=== PATIENT | male | born 1960 | race Caucasian/White ===

== ENCOUNTER → 2018-02-06 10:52 | Outpatient (CLI) | payer BC, SELFPAY ==
[2018-02-15 19:14] LABS: Ca oxalate dihydrate 10 % (.)
[2018-02-17 09:23] LABS: Specimen Type Comment: (.)
== END ==
PROVIDERS: Visit Provider Emergency Medicine
DX: N20.0 Calculus of kidney (principal)
CPT/HCPCS: 82370

== ENCOUNTER → 2018-08-22 13:34 | Outpatient (CLI) | payer BC, SELFPAY ==
--- NOTE | 2018-08-22 13:44 | XR_ITS ---
XR KUB HISTORY: ITS.REASON: Renal Calculus ORDERING PHYSICIAN: Jose Mancilla MD PATIENT AGE: 58 years COMPARISON: None FINDINGS: Pain calcification noted over the lower pole left kidney suggesting left nephrolithiasis. This area measures 3 x 1 mm. Bilateral pelvic vascular calcification. IMPRESSION: Left nephrolithiasis
== END ==
PROVIDERS: PCP Family Medicine; Visit Provider Urology
DX: N20.1 Calculus of ureter (principal)
CPT/HCPCS: 74018

== ENCOUNTER → 2019-02-15 13:46 | Outpatient (CLI) | payer BC, SELFPAY ==
--- NOTE | 2019-02-15 13:51 | XR_ITS ---
PROCEDURE: XR KUB CLINICAL INDICATION: renal calculus Right flank pain COMPARISON: ABDPELWO CT abdomen pelvis wo con from 02/01/2018 FINDINGS: There is a moderate amount of retained colonic feces in the ascending and transverse colon obscuring the renal outlines. No obvious renal or ureteral calculi evident. IMPRESSION: No obvious renal or ureteral calculi Dictated by: Mickey Thompson MD 02/15/2019 15:01 Electronically signed by Mickey Thompson MD in [facility] 02/15/2019 15:01
== END ==
PROVIDERS: PCP Family Medicine; Visit Provider Urology
DX: N20.1 Calculus of ureter (principal)
CPT/HCPCS: 74018

== ENCOUNTER → 2019-02-22 15:20 | Outpatient (CLI) | payer BC, SELFPAY ==
--- NOTE | 2019-02-22 15:22 | US_ITS ---
PROCEDURE: US KIDNEY CLINICAL INDICATION: R10.9 Unspecified abdominal pain Right-sided flank pain COMPARISON: No exams were available for comparison FINDINGS: The kidneys are normal size shape and position. No hydronephrosis, mass, perinephric fluid or cortical thinning. IMPRESSION: Negative bilateral renal ultrasound Dictated by: Mickey Thompson MD 02/22/2019 17:16 Electronically signed by Mickey Thompson MD in [facility] 02/22/2019 17:16
== END ==
PROVIDERS: PCP Family Medicine; Visit Provider Urology
DX: R10.9 Unspecified abdominal pain (principal)
CPT/HCPCS: 76770

== ENCOUNTER → 2019-02-27 14:57 | Outpatient (CLI) | payer BC, SELFPAY ==
--- NOTE | 2019-02-27 15:06 | CT_ITS ---
PROCEDURE: CT ABDOMEN PELVIS WO CON CLINICAL INDICATION: RIGHT FLANK PAIN COMPARISON: ABDPELWO CT abdomen pelvis wo con from 02/01/2018 TECHNIQUE: Axial images obtained with sagittal and coronal reformats. All CT scans at the facility use one or more dose reduction, viz: automated exposure control, ma/kV adjustment per patient size (including targeted exams where dose is matched to indication, i.e. head), or iterative reconstruction technique. FINDINGS: LOWER THORAX: No acute finding ABDOMEN & PELVIS: Fatty liver. The gallbladder, spleen, pancreas, and adrenal glands have an unremarkable appearance. There is some minimal haziness of the fat in the celiac axis region with some scattered small nodes in this area. This is nonspecific and probably not significantly changed. There is a 3 mm stone in the lower pole of the right kidney. On the left there are multiple punctate renal calculi measuring up to 4 mm in the upper pole and there is a curvilinear stone in the lower pole of the left kidney which measures 7 mm. No ureteral calculi. No hydronephrosis. There are small periaortic lymph nodes. There is minimal ectasia of the infrarenal abdominal aorta at 2.4 cm. Unremarkable appendix. No urinary bladder calculi. No acute bony findings. There are scattered diverticula of the colon but no evidence of diverticulitis. IMPRESSION: 1. Bilateral nephrolithiasis. No obstructing ureteral calculi evident. 2. Other nonacute findings as described above. Dictated by: Mickey Thompson MD 02/27/2019 19:12 Electronically signed by Mickey Thompson MD in [facility] 03/01/2019 06:35
== END ==
PROVIDERS: PCP Family Medicine; Visit Provider Urology
DX: R10.9 Unspecified abdominal pain (principal)
CPT/HCPCS: 74176

== ENCOUNTER → 2019-03-20 11:10 | Outpatient (CLI) | payer BC, SELFPAY ==
--- NOTE | 2019-03-20 11:15 | XR_ITS ---
PROCEDURE: XR THORACIC SPINE 2V CLINICAL INDICATION: THORACIC BACK PAIN Chronic mild wedge deformities T7 and T8. COMPARISON: No exams were available for comparison FINDINGS: There is multilevel degenerative disc disease from T1-T2 to the T10-11. Mild anterior wedging of T8 and T7 with loss of less than 1/4 of the vertebral body heights are noted without acute lucent fracture lines. Old wedging is suspected. There is no convincing evidence of acute fracture dislocation or destructive lesion. IMPRESSION: Multilevel degenerative disc disease. Chronic appearing mild wedge deformities T7 and T8. Dictated by: Aristeo Amador 03/20/2019 11:43 Electronically signed by Aristeo Amador in [facility] 03/20/2019 11:43
== END ==
PROVIDERS: PCP Family Medicine; Visit Provider Family Medicine
DX: M54.6 Pain in thoracic spine (principal)
CPT/HCPCS: 72070

== ENCOUNTER 2019-10-20 13:21 | Emergency (ER) | payer BC, SELFPAY ==
[2019-10-20 14:26] VITALS: BP 142/90; PULSE 81; RESP 20; TEMP 36.9; O2SAT 98; BMI 26.6
--- NOTE | 2019-10-20 14:43 | HMH.EDUTC ---
[place] Disposition Clinical Impression: URI (upper respiratory infection) Qualifiers: URI type: unspecified URI Qualified Code(s): J06.9 - Acute upper respiratory infection, unspecified Disposition: Home, Self-Care Condition on Discharge: Good Instructions: Sore Throat, DI for Strep Throat Additional Instructions: *Monitor Temp, Over the counter Motrin or Tylenol as directed/as needed Tylenol every 4 hours and Motrin every 6 hours (as long as your family doctor has told you that you can take it) for fever or pain. and straight to ER if unable to lower temp less than 101.0 after medication given *Warm salt water gargles may help to soothe the throat *Throat Lozenges *Warm fluids like tea with honey may help to soothe the throat *Sleep elevated *Humidifier/Vaporizer Take medication as prescribed Your throat swab was sent for culture. Those results are typically sent to your primary care. Be sure to follow up in 2-3 days with your family doctor/primary care physician if no improvement so they can review those result and treat if necessary. If you don?t have a primary care doctor, I recommend you get one but in the mean time, you will have to return to a walk in clinic Follow up IMMEDIATELY for new or worsening symptoms or no Noticeable improvement over the next 48-72 hours. 911 for difficulty breathing or swallowing *change toothbrush and toothpaste 24-48 hours after starting to take antibiotics so you do not reinfect yourself Monitor Temp. Tylenol and/or Ibuprofen as needed. ER if fever is no less than 101 despite alternating Tylenol and Ibuprofen * Encourage fluids, water, Gatorade, powerade, pedialyte if /toddler/or child *Cold fluids, popsicles and ice cream may feel good on his throat Prescriptions: Amoxicillin [Amoxicillin 500mg Cap] 500 mg PO BID 10 Days #20 cap Transmission Status: Received by [facility] #[id number] Referrals: Bina Garvey [Primary Care Provider] - As needed Time of Disposition: 14:51 Medical Decision Making - [place] Inquiry Pt receiving controlled substance: No Geovany was queried for this patient: No Vital Signs: 10/20/19 14:26 Temperature 98.4 F Temperature Source Oral Pulse Rate [Left Brachial] 81 Respiratory Rate 20 Blood Pressure [Left Arm] 142/90 H Blood Pressure Mean [Left Arm] 107 Blood Pressure Source [Left Arm] Automatic Cuff Blood Pressure Position [Left Arm] Sitting 02 Sat by Pulse Oximetry 98 Oxygen Delivery Method Room Air - Lab Data Lab results reviewed: Yes: I reviewed the patient's lab results. Orders (Tests/Meds): ED MEDICATIONS Discontinued Medications Generic Name Dose Route Start Last Admin Trade Name Freq PRN Reason Stop Dose Admin Methylprednisolone Sodium Succinate 125 mg 10/20/19 14:49 10/20/19 14:59 Solu-Medrol 125mg/2ml Vial IM 10/20/19 14:50 125 mg ONCE ONE Administration [place] HPI - General Stated complaint: sore throat, Time Seen by Provider: 10/20/19 14:43 Mode of Arrival: Ambulatory Source of Information: Patient Limitations: No Limitations Description of Symptoms (Recalled from Triage Doc. by RN): PATIENT C/O SORE THROAT X 3 DAYS. DENIES ANY OTHER SYMPTOMS HEENT Symptoms (Recalled from RN notes): Yes Resp Symptoms (Recalled from RN notes): No Skin Symptoms (Recalled from RN notes): No MS Symptoms (Recalled from RN notes): No Functional Status (Recalled from RN notes): WNL - History of Present Illness Provider Complaint: Patient states that he has been having sore throat for several days that has got worse today States that he feels like his throat is swollen and hurts when he swallows Denies any other symptoms - Related Data Previous Rx's Medication Instructions Recorded Ondansetron [Zofran 4mg ODT] 4 mg PO TIDP PRN #10 tab.rapdis 02/01/18 Oxycodone HCl/Acetaminophen 1 tab PO Q6HP PRN #10 tab 02/01/18 [Percocet 5/325mg tablet] Tamsulosin HCl [Flomax 0.4mg 0.4 mg PO HS #10 cap.er.24h
[2019-10-20 15:04] LABS: UTC Strep Screen (Rapid) Negative (Negative)
[2019-10-20 15:13] VITALS: BP 142/90; PULSE 81; RESP 20; TEMP 36.9; O2SAT 98
== END 2019-10-20 15:14 | disposition home or self-care (01) ==
PROVIDERS: Emergency Provider Nurse Practitioner; PCP Family Medicine
DX: J06.9 Acute upper respiratory infection, unspecified (principal)
CPT/HCPCS: 87880; 96372; 99202

== ENCOUNTER → 2020-01-12 09:49 | Outpatient (CLI) | payer BC, SELFPAY ==
[2020-01-12 10:44] LABS: Coronavirus 19 IgG Antibody Negative (Negative); Coronavirus 19 IgM Antibody Negative (Negative)
== END ==
PROVIDERS: Visit Provider Internal Medicine Gastroenterology
DX: Z01.89 Encounter for other specified special examinations (principal); Z12.11 Encounter for screening for malignant neoplasm of colon
CPT/HCPCS: 36415; 86328

== ENCOUNTER 2020-01-14 08:26 | Day surgery (SDC) | payer BC, SELFPAY ==
[2020-01-09 09:34] VITALS: BMI 27.1
[2020-01-14 08:45] VITALS: BP 122/71; PULSE 50; RESP 16; TEMP 36.6; O2SAT 98
[2020-01-14 09:34] VITALS: O2SAT 99
--- NOTE | 2020-01-14 09:34 | P.PN_ITS ---
[facility] Anesthesia Checklist - Structural Data Admitted From: Home Planned Operative Procedure/s: colonoscopy Consent for Planned Operative Procedure(s) Verified: Yes - Airway Assessment C-Spine Mobility Assessed: Yes TMJ Mobility Assessed: Yes Dentition: Good Dentition - Neurological Assessment Level of Consciousness: Awake, Alert, Appropriate - Anesthesia Plan Anesthesia Risk discussed: Yes Anesthesia Plan: Verified ASA Class: II Anesthesia Type: MAC [facility] History I have reviewed the patient's past medical history: Yes Medical History: Reports:: Hyperlipidemia Denies:: Cancer, Diabetes Mellitus Type 1, Diabetes Mellitus Type 2, Internal Pacemaker, MRSA, Seizures *Have you ever received a pneumonia vaccine?: No *Have you received a flu vaccine this season?: Yes Anesthesia experience/problems:: none Laterality Cases: Left: Arthroscopy Knee Other Surgeries: Yes: Colonoscopy. No: Pacemaker Amputation: No Fractures: No - *Social History Smoking Status: Current every day smoker Tobacco Type: cigarettes # Packs/Day (cigarettes): 1 Alcohol Intake: never Alcohol Intake Frequency:: holidays/special occasions only Substance Use Type: denies use *Occupational Status:: employed, retired Housing: house Household Members: spouse *Travel in the last 8 weeks: None Family Hx:: No significant family history
--- NOTE | 2020-01-14 09:56 | P.PCN_ITS ---
[facility] Procedure Note Procedure Note:: Colonoscopy Procedure Report: Colonoscopy with cold snare polypectomy Endoscopist: Eduard Hilton II, MD Referring physician: Bina Garvey MD Date of Procedure: January 14, 2020 Equipment: Olympus 180 variable stiffness pediatric colonoscope Sedation: MAC sedation Indication: Mr. Schofield is a 59-year-old gentleman who is here for follow-up screening/surveillance colonoscopy secondary to a personal history of colon polyps. The patient did have a colonoscopy in December 2009 and had 4 polyps (tubular adenomas x4) removed. His colonoscopy in February 2014 revealed 6 colon polyps (tubular adenomas x6) which were removed. His last colonoscopy in January 2017 revealed 4 new colon polyps (tubular adenomas x4) which were removed. The patient reports no abdominal pain, weight loss, change in his bowel habits or rectal bleeding. He reports no family history of colon cancer. Procedure: Prior to the procedure, a history and physical exam was performed, and patient's medications and allergies were reviewed. The risks, benefits and alternatives of the sedation and procedure were discussed with the patient. All questions were answered and informed consent was obtained. The patient was brought to the procedure room. Patient identification and proposed procedure were verified by the physician and the nurse. The patient was placed in a left lateral decubitus position and the scope was passed under direct vision. Throughout the procedure, the patient's blood pressure, pulse, and oxygen saturations were monitored continuously. The colonoscopy was accomplished without difficulty. The patient tolerated the procedure well. Findings: On digital rectal examination there was normal rectal tone. There were no external hemorrhoids. The prostate was 2+, smooth, soft, symmetric without nodules. The colonoscope was introduced through the anal canal to the rectum and advanced to the cecum. The ileocecal valve and appendiceal orifice were identified. The scope was advanced a short distance into the ileum which appeared grossly normal. The scope was then withdrawn into the colon. There were 3 diminutive colon polyps (cecum x1 (4 mm), descending x1 (4 mm) and sigmoid x1 (3 mm)) which were all removed via cold snare polypectomy. There were mildly scattered diverticuli throughout the descending and sigmoid colon (LEFT colon). The rectum itself was normal. Upon retroflexion within the rectum there were grade 1 internal hemorrhoids. The preparation was excellent throughout with Cornelia Preparation Score of 9. The cecal time was 12 minutes. Impression: 1. Diminutive colonic polyps x3 2. Mild left-sided diverticulosis 3. Grade 1 internal hemorrhoids Plan: I will follow up the polyp pathology and recommend repeat colonoscopy again in 5 years based upon the patient's personal history of adenomatous polyps and the present polyp histology. I would encourage fiber supplementation on a long-term daily maintenance basis.
[2020-01-14 10:00] VITALS: BP 95/62; PULSE 66; RESP 12; TEMP 36.6; O2SAT 97
[2020-01-14 10:10] VITALS: BP 103/67; PULSE 55; RESP 16; O2SAT 98
[2020-01-14 10:20] VITALS: BP 133/87; PULSE 56; RESP 16; O2SAT 100
[2020-01-14 10:30] VITALS: BP 123/81; PULSE 59; RESP 16; TEMP 36.6; O2SAT 100
== END 2020-01-14 10:55 | disposition home or self-care (01) ==
LOC: OUTP 08:32
PROVIDERS: PCP Family Medicine; Visit Provider Internal Medicine Gastroenterology
PROC: 0DJD8ZZ Inspection of Lower Intestinal Tract, Via Natural or Artificial Opening Endoscopic (ICD-10-PCS; CPT 45378; principal; 2020-01-14 09:30)
DX: Z12.11 Encounter for screening for malignant neoplasm of colon (principal); Z86.010 Personal history of colon polyps; K63.5 Polyp of colon; K57.30 Diverticulosis of large intestine without perforation or abscess without bleeding; K64.0 First degree hemorrhoids; E78.5 Hyperlipidemia, unspecified; Z87.39 Personal history of other diseases of the musculoskeletal system and connective tissue; Z79.899 Other long term (current) drug therapy
CPT/HCPCS: 45385

== ENCOUNTER 2022-09-24 14:39 | Emergency (ER) | payer BC, SELFPAY ==
[2022-09-24] VITALS (22 sets, daily range): BP systolic 115–168; BP diastolic 70–94; PULSE 62–81; RESP 15–21; TEMP 36.4–36.7; O2SAT 95–100; BMI 25.5
--- NOTE | 2022-09-24 14:42 | PC.NURSE ---
RN at the bedside
--- NOTE | 2022-09-24 14:44 | PC.NURSE ---
called ct for stat head ct
--- NOTE | 2022-09-24 14:44 | HMH.EDGENADL ---
Discharge Plan Disposition Patient Disposition: Xfer Other Prescriptions Prescriptions: No Action simvastatin 20 MG tablet 20 mg PO HS aspirin 81 mg Tablet,Chewable 81 mg PO DAILY Referrals Follow up/Referrals: Bina Garvey [Primary Care Provider] - See instructions Clinical Impressions Clinical Impression: Closed fracture of frontal sinus, Closed fracture of orbital wall, Forehead laceration Discharge ED Provider: Yunier Stanford General Adult HPI General Chief complaint: Head Injury Stated complaint: Fall 09/24 lac on forehead Time Seen by Provider: 09/24/22 14:44 History of Present Illness HPI narrative: Patient is a 62-year-old man presenting today with a head injury. 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 He has a significant headache and is having nausea and vomiting associate with this. Denies any loss of consciousness. He is not on any anticoagulation or antiplatelet other than daily 81 mg aspirin. He has no injuries elsewhere. Related Data Home Medications Medication Instructions Recorded Confirmed simvastatin 20 mg tablet 20 mg PO HS Cholesterol 01/09/20 09/24/22 aspirin 81 mg chewable tablet 81 mg PO DAILY Heart health 09/24/22 09/24/22 Allergies Allergy/AdvReac Type Severity Reaction Status Date / Time No Known Allergies Allergy Verified 01/14/20 08:44 [facility] Disclaimer: The information contained in this section may have been updated after the patient was seen, as this information can be updated by other users. Social History Smoking Status: Current every day smoker tobacco type: cigarettes packs per day: 1 second hand exposure: No alcohol intake: never substance use type: denies use current occupational status: employed and retired Travel in the last 8 weeks: None household members: spouse housing: house current occupational exposures/hazards: Yes caffeine: Yes ROS Obtained: Yes All systems reviewed & no additional complaints except as documented Physical Exam General General appearance: alert Head Head exam: other (There is obvious facial deformity over the frontal aspect of the left side of his face and forehea with significant depression of at least 1 cm, there is also a horizontally oriented laceration in the middle of his forehead) Neck Neck exam: Absent tenderness Respiratory Respiratory exam: Present normal lung sounds bilaterally; Absent respiratory distress or wheezes Cardiovascular Cardiovascular exam: Present regular rate; Absent tachycardia Abdominal Exam Abdominal exam: Present soft; Absent distention or tenderness Neurological Exam Neurological exam: Present alert and oriented X3 Medical Decision Making [place] Inquiry Pt receiving controlled substance: No Vital Signs: 09/24/22 14:40 09/24/22 14:43 09/24/22 15:15 Temperature 97.6 F Temperature Source Tympanic Pulse Rate 80 78 Pulse Rate [Left] 80 Respiratory Rate 21 18 Blood Pressure 150/85 H 150/93 H Blood Pressure [Right Arm] 150/81 H Blood Pressure Mean 92 112 Blood Pressure Mean [Right Arm] 104 Blood Pressure Source [Right Arm] Automatic Cuff Blood Pressure Position [Right Arm] Sitting 02 Sat by Pulse Oximetry 99 99 100 Oxygen Delivery Method Room Air Room Air 09/24/22 15:30 09/24/22 15:45 Temperature Temperature Source Pulse Rate 81 75 Pulse Rate [Left] Respiratory Rate Blood Pressure 154/83 H 145/86 H Blood Pressure [Right Arm] Blood Pressure Mean 106 105 Blood Pressure Mean [Right Arm] Blood Pressure Source [Right Arm] Blood Pressure Position [Right Arm] 02 Sat by Pulse Oximetry 98 98 Oxygen Delivery Method Orders (Tests/Meds): ED MEDICATIONS Generic Name Dose Route Start Last Adm
--- NOTE | 2022-09-24 14:45 | CT_ITS ---
FINAL REPORT CLINICAL HISTORY: fall, injury FINDINGS: Axial CT images of the cervical spine were obtained without contrast. Sagittal and coronal reformatted images were also obtained. This study was performed with techniques to keep radiation doses as low as reasonably achievable (ALARA). Individualized dose reduction techniques using automated exposure control or adjustment of mA and/or kV according to the patient's size were employed. There is no evidence of fracture or dislocation. The bony alignment is normal. There are mild degenerative changes with small osteophytes. No paraspinous soft tissue abnormality is seen. Limited images of the upper thorax are unremarkable. IMPRESSION: Mild degenerative changes without acute bony abnormality. Reviewed, Interpreted and Dictated by Gibran Stewart III, MD Transcribed by Jackie Bishop Authenticated and [facility]
--- NOTE | 2022-09-24 14:45 | CT_ITS ---
FINAL REPORT CLINICAL HISTORY: fall, head injury frontal FINDINGS: Axial images of the head were obtained without contrast. Coronal reformatted images were also obtained.This study was performed with techniques to keep radiation doses as low as reasonably achievable (ALARA). Individualized dose reduction techniques using automated exposure control or adjustment of mA and/or kV according to the patient's size were employed. There is no evidence of intracranial hemorrhage or mass. The ventricular size is within normal limits. There is no evidence of shift of the midline structures. No abnormal extra axial fluid collection is identified. There is a comminuted fracture involving the anterior wall of the left frontal sinus with posterior displacement of fracture fragments. There is a fracture of the anterior/superior orbit wall. Air is seen in the left orbit. There is partial opacification of the frontal sinuses and several ethmoid air cells. There is mucosal thickening of the right maxillary sinus. IMPRESSION: No acute intracranial abnormality. Fractures as above. Reviewed, Interpreted and Dictated by Gibran Stewart III, MD Transcribed by Jackie Bishop Authenticated and [facility]
--- NOTE | 2022-09-24 14:59 | PC.NURSE ---
rad notified to power share images and make a disc
--- NOTE | 2022-09-24 15:00 | PC.NURSE ---
Radiology informed to power-share images to [facility] and burn a disc
--- NOTE | 2022-09-24 15:02 | PC.NURSE ---
placed call to [facility] awaiting images and will return call
--- NOTE | 2022-09-24 15:02 | PC.NURSE ---
Rounded on patient; no needs at this time, call best within reach.
--- NOTE | 2022-09-24 15:52 | PC.NURSE ---
Dr Stanford speaking with [facility]
--- NOTE | 2022-09-24 16:00 | PC.NURSE ---
pt accepted at by Dr Berman
--- NOTE | 2022-09-24 16:17 | PC.NURSE ---
Awaiting EMS arrival for transport
--- NOTE | 2022-09-24 16:48 | PC.NURSE ---
Rounded on patient; pt resting on ED stretcher with son in law at BS. Call light within reach. Awaiting on EMS at this time
--- NOTE | 2022-09-24 17:37 | XR_ITS ---
PROCEDURE INFORMATION: Exam: XR Left Foot Exam date and time: 09/24/2022 5:34 PM Age: 62 years old Clinical indication: Pain; Foot; Left; Additional info: Pain/injury TECHNIQUE: Imaging protocol: Radiologic exam of the left foot. Views: 3 or more views. COMPARISON: No relevant prior studies available. FINDINGS: Bones/joints: Acute transverse fracture distal aspect of the 1st and 2nd proximal phalanx. Soft tissues: Associated soft tissue swelling. IMPRESSION: 1. Acute transverse fracture distal aspect of the 1st and 2nd proximal phalanx. 2. Associated soft tissue swelling.
--- NOTE | 2022-09-24 17:38 | PC.NURSE ---
Radiology at for a left foot/ankle xray
--- NOTE | 2022-09-24 17:49 | PC.NURSE ---
hard sole shoe applied to L foot
--- NOTE | 2022-09-24 18:26 | PC.NURSE ---
placed call for transport from [facility], they are to call back
--- NOTE | 2022-09-24 19:01 | PC.NURSE ---
[facility] updated on patient's status with transport
--- NOTE | 2022-09-24 20:21 | PC.NURSE ---
attempted to fly patient via [facility], spoke with [facility] and [place] [facility] is available per jani. patient worried about cost and declines to fly
--- NOTE | 2022-09-24 20:23 | PC.NURSE ---
Called [facility] for possible transportation. Spoke with Brianda she advised they are unable to at this time due to staffing.
--- NOTE | 2022-09-24 20:26 | PC.NURSE ---
Spoke with Ayse from [facility]. advised she would try to find someone available so she could send a crew
--- NOTE | 2022-09-24 20:31 | PC.NURSE ---
[facility] able to send crew at this time. Pt/family updated.
--- NOTE | 2022-09-24 21:21 | PC.NURSE ---
[facility] arrived to transport pt to [facility]
== END 2022-09-24 21:34 | disposition other institution (70) ==
PROVIDERS: Emergency Provider Student in an Organized Health Care Education/Training Program; PCP Family Medicine
DX: S02.40DA Maxillary fracture, left side, initial encounter for closed fracture (principal); S02.85XA Fracture of orbit, unspecified, initial encounter for closed fracture; S01.81XA Laceration without foreign body of other part of head, initial encounter; R11.2 Nausea with vomiting, unspecified; M79.672 Pain in left foot; F17.210 Nicotine dependence, cigarettes, uncomplicated; W01.198A Fall on same level from slipping, tripping and stumbling with subsequent striking against other object, initial encounter; Z79.82 Long term (current) use of aspirin; Z23 Encounter for immunization
CPT/HCPCS: 70450; 72125; 73630; 90471; 90715; 96365; 96372; 96375; 99285; J2405

== ENCOUNTER → 2022-10-11 13:54 | Outpatient (CLI) | payer BC, SELFPAY ==
--- NOTE | 2022-10-11 13:57 | XR_ITS ---
FINAL REPORT CLINICAL HISTORY: Foot Pain, post great toe fx about two weeks ago. Weightbearing views. COMPARISON: 09/24/2022 FINDINGS: LEFT FOOT: Three views of the left foot were obtained. There are fractures of the distal portions of the proximal phalanges of the 1st and 2nd toes, seen on the prior plain films of September 24. There is 4 mm of medial displacement of the distal fragment of the 1st toe proximal phalanx, which was also present on the prior films of September 24. In the interval since the prior exam some callus formation has occurred. Mild degenerative change of the 1st metatarsophalangeal joint is present. There is no soft tissue abnormality. IMPRESSION: Fractures of the distal portions of the proximal phalanges of the 1st and 2nd toes, seen on prior films of September 24. The displacement of the distal fragment of the 1st toe fracture remains present. Some callus formation is now seen. Reviewed, Interpreted and Dictated by Gibran Stewart III, MD Transcribed by Brandi Barcenas Authenticated and [facility]
== END ==
PROVIDERS: PCP Family Medicine; Visit Provider Podiatrist
DX: S92.402A Displaced unspecified fracture of left great toe, initial encounter for closed fracture (principal); M79.672 Pain in left foot
CPT/HCPCS: 73630

== ENCOUNTER → 2022-11-01 08:31 | Outpatient (CLI) | payer BC, SELFPAY ==
--- NOTE | 2022-11-01 08:38 | XR_ITS ---
FINAL REPORT CLINICAL HISTORY: foot pain COMPARISON: 10/11/2022 FINDINGS: Left foot Three views were obtained. There are transverse fractures of the 1st and 2nd proximal phalanges. There is moderate displacement of the 1st proximal phalanx and mild displacement of the 2nd proximal phalanx. Findings are stable since the prior. There is minimal callus formation, slightly increased. No new bony abnormality is identified. IMPRESSION: Minimal interval healing of the 1st and 2nd proximal phalanges without further displacement. Reviewed, Interpreted and Dictated by Mike Wilson MD Transcribed by Jackie Bishop Authenticated and [facility]
== END ==
PROVIDERS: PCP Family Medicine; Visit Provider Podiatrist
DX: S92.412D Displaced fracture of proximal phalanx of left great toe, subsequent encounter for fracture with routine healing (principal); S92.502D Displaced unspecified fracture of left lesser toe(s), subsequent encounter for fracture with routine healing
CPT/HCPCS: 73630

== ENCOUNTER 2024-08-02 07:16 | Outpatient (CLI) | payer MEDICARE, SELFPAY ==
--- NOTE | 2024-08-02 | CA_ITS ---
APPROVED REPORT Exam: Exercise Treadmill Technologist: Sofy Delong Ht: 6 ft 4 in Wt: 245 lbs BSA: 2.41 m2 HR: 63 bpm BP: 106/75 mmHg Rhythm: NSR Medical History Medical History: Hyperlipidemia, Smoking Medications: Aspirin, Atorvastatin, Fenofibrate, Magnsiun oxide Allergies: No known drug allergies Cardiac Risk Factors: Hyperlipidemia, Smoking Stress Test Details Test: Exercise stress testing was performed using a modified Devon protocol. HR Resting HR: 63 bpm Max Heart Rate (APMHR): 155 bpm Max HR Achieved: 136 bpm Target HR (85% APMHR): 132 bpm % of APMHR: 88 Recovery HR: 87 bpm HR response to stress: Normal HR response to stress BP Resting BP: 106.0/75.0 mmHg Max BP: 256.0/102.0 mmHg Recovery BP: 177.0/90.0 mmHg BP response to stress: Abnormal hypertensive response to stress. ECG Resting ECG: NSR Stress EC mm horizontal ST depression Arrhythmia: NSVT, PVCs Clinical Exercise duration: 17.47 min Exercise capacity: 7.4 METs Stress ECG Conclusion Max HR: 136 Max BP: 256/102 Mets: 7.4 Test stopped due to: soa, arrythmias Pt walked 8 1/2 minutes No chest pain Pt had shortness of air Ectopy: NSVT ST changes: [address] depression CONCLUSION: Average exercise capacity. ECG changes suggestive of ischemia at peak stress, including [address] depression and NSVT Hypertensive BP response to exercise. BP control is recommended. Myoview images are reported separately. Electronically signed by : Krysta Epperson MD 08/02/2024 12:59:31
--- OUTSIDE RECORDS SUMMARY | 2024-08-02 07:18 | XMS_ITS | Data Portability ---
Author Organization [facility] Address [address] [place] [address] Care Team Providers Care Clinical Unit Coordinator Name Role Phone MORGAN COOK Primary Care Provider Assessment Encounter Date Assessment Date Assessment LastModified by Organization Details LastModified Time 10/13/2021 10/13/2021 KUB reviewed with patient. We discussed kidney stone prevention. We discussed options for elective stone treatment with ESWL versus ureteroscopy. Continue to monitor by KUB. [email or web address] Not available 10/25/2021 14:27:05 04/16/2022 04/16/2022 We discussed kidney stone prevention. Follow up 6 months with KUB. Sildenafil as needed for erectile dysfunction. He reports PSA with PCP. [email or web address] Not available 04/19/2022 12:40:49 10/15/2022 10/15/2022 Sildenafil as needed for erectile dysfunction. He reports PSA with PCP. KUB without obvious stone burden. We discussed kidney stone prevention. [email or web address] Not available 10/15/2022 17:01:50 04/15/2023 04/15/2023 Sildenafil as needed for erectile dysfunction. He reports PSA with PCP. We discussed kidney stone prevention. [email or web address] Not available 04/15/2023 14:00:11 Plan of Treatment Reminders Order Date Submit Date Provider Last Modified By Organization Details Last Modified Time Details Appointments None recorded. Lab urinalysis panel, auto 2023 024 [email or web address] 14 [facility], [address], [place], [address], 4 14:00:14 urinalysis panel, auto 2022 023 [email or web address] 14 [facility], [address], [place], [address], 3 17:01:51 urinalysis panel, auto 2022 023 [email or web address] 14 [facility], [address], [address], [place], [address], 3 12:40:50 urinalysis panel, auto 2021 022 [email or web address] 14 [facility], [address], [address], [place], [address], 2 14:27:06 Referral None recorded. Procedures None recorded. Surgeries None recorded. Imaging XR, abdomen, 1 view 2023 024 [facility]iology [facility], [address] [facility] [address] [facility], [place], [address], 4 11:14:53 Medication Orders None recorded. Patient TargetsNo targets recorded. Patient InstructionsNo instructions recorded. Reason for Referral None Reported. Results Created Date Observation Date Name Description Value Unit Range Abnormal Flag Note LastModifiedBy Organization Detail LastModifiedTime 10/14/19 22 10/13/2021 urina lysis panel , auto Unknown Analyte Clean Catch Not Available [facility] [address], [place], [address], 10/13/2021 11:27:09 10/14/19 22 10/13/2021 urina lysis panel , auto Unknown Analyte Yellow Not Available [facility] [address], [place], [address], 10/13/2021 11:27:09 10/14/19 22 10/13/2021 urina lysis panel , auto Unknown Analyte Clear Not Available [facility] [address], [place], [address], 10/13/2021 11:27:09 10/14/19 22 10/13/2021 urina lysis panel , auto Unknown Analyte 1.020 Not Available [facility] [address], [place], [address], 10/13/2021 11:27:09 10/14/19 22 10/13/2021 urina lysis panel , auto Unknown Analyte 1.003- 1.035 Not Available [facility] [address], [place], [address], 10/13/2021 11:27:09 10/14/19 22 10/13/2021 urina lysis panel , auto Unknown Analyte 5.0 Not Available [facility] [address], [place], [address], 10/13/2021 11:27:09 10/14/19 22 10/13/2021 urina lysis panel , auto Unknown Analyte 5.0-8. 0 Not Available [facility] [address], [place], [address], 10/13/2021 11:27:09 10/14/19 22 10/13/2021 urina lysis panel , auto Unknown Analyte Negati ve Not Available [facility] [address], [place], [address], 10/13/2021 11:27:09 10/14/19 22 10/13/2021 urina lysis panel , auto Unknown Analyte Negati ve Not Available [facility] [address], [place], [address], 10/13/2021 11:27:09 10/14/19 22 10/13/2021 urina lysis panel , auto Unknown Analyte Negati ve Not Available [facility] [address], [place], [address], 10/13/2021 11:27:09 10/14/19 22 10/13/2021 urina lysis panel , auto Unknown Analyte Negati ve Not Available [facility] [address], [place], [address], 10/13/2021 11:27:09 10/14/19 22 10/13/2021 urina lysis panel , auto Unknown Analyte Negati ve Not Available [facility] [address], [place], [address], 10/13/2021 11:27:09 10/14/19 22 10/13/2021 urina lysis panel , auto Unknown Analyte Negati ve Not Available [facility] [address], [place], [address], 10/13/2021 11:27:09 10/14/19 22 10/13/2021 urina lysis panel , auto Unknown Analyte Normal Not Available [facility] [address], [place], [address], 10/13/2021 11:27:09 10/14/19 22 10/13/2021 urina lysis panel , auto Unknown Analyte Normal Not Available [facility] [address], [place], [address], 10/13/2021 11:27:09 10/14/19 22 10/13/2021 urina lysis panel , auto Unknown Analyte Negati ve Not Available [facility] [address], [place], [address], 10/13/2021 11:27:09 10/14/19 22 10/13/2021 urina lysis panel , auto Unknown Analyte Negati ve Not Available [facility] [address], [place], [address], 10/13/2021 11:27:09 10/14/19 22 10/13/2021 urina lysis panel , auto Unknown Analyte Normal Not Available [facility] [address], [place], [address], 10/13/2021 11:27:09 10/14/19 22 10/13/2021 urina lysis panel , auto Unknown Analyte Normal 1 mg/dl Not Available [facility] [address], [place], [address], 10/13/2021 11:27:09 10/14/19 22 10/13/2021 urina lysis panel , auto Unknown Analyte Negati ve Not Available [facility] [address], [place], [address], 10/13/2021 11:27:09 10/14/19 22 10/13/2021 urina lysis panel , auto Unknown Analyte Negati ve Not Available [facility], [facility] Urology [facility] [address], [place], [address], 10/13/2021 11:27:09 10/14/19 22 10/13/2021 urina lysis panel , auto Unknown Analyte Negati ve Not Available [facility] [address], [place], [address], 10/13/2021 11:27:09 10/14/19 22 10/13/2021 urina lysis panel , auto Unknown Analyte Negati ve Not Available [facility] [address], [place], [address], 10/13/2021 11:27:09 04/16/19 23 04/16/2022 urina lysis panel , auto Unknown Analyte Clean Catch Not Available [facility] [address], [place], [address], 04/16/2022 09:14:11 04/16/1904/16/2022 urina lysis panel , auto Unknown Analyte Yellow Not Available [facility] [address], [place], [address], 04/16/2022 09:14:11 04/16/1904/16/2022 urina lysis panel , auto Unknown Analyte Clear Not Available [facility] [address], [place], [address], 04/16/2022 09:14:11 04/16/19 23 04/16/2022 urina lysis panel , auto Unknown Analyte 1.020 Not Available [facility] [address], [place], [address], 04/16/2022 09:14:11 04/16/1904/16/2022 urina lysis panel , auto Unknown Analyte 1.003- 1.035 Not Available [facility] [address], [place], [address], 04/16/2022 09:14:11 04/16/19 23 04/16/2022 urina lysis panel , auto Unknown Analyte 5.0 Not Available [facility] [address], [place], [address], 04/16/2022 09:14:11 04/16/1904/16/2022 urina lysis panel , auto Unknown Analyte 5.0-8. 0 Not Available [facility] [address], [place], [address], 04/16/2022 09:14:11 04/16/1904/16/2022 urina lysis panel , auto Unknown Analyte 25 Shola/ul Trace Not Available [facility] [address], [place], [address], 04/16/2022 09:14:11 04/16/1904/16/2022 urina lysis panel , auto Unknown Analyte Negati ve Not Available [facility] [address], [place], [address], 04/16/2022 09:14:11 04/16/19 23 04/16/2022 urina lysis panel , auto Unknown Analyte Negati ve Not Available [facility] [address], [place], [address], 04/16/2022 09:14:11 04/16/1904/16/2022 urina lysis panel , auto Unknown Analyte Negati ve Not Available [facility] [address], [place], [address], 04/16/2022 09:14:11 04/16/1904/16/2022 urina lysis panel , auto Unknown Analyte Negati ve Not Available [facility] [address], [place], [address], 04/16/2022 09:14:11 04/16/1904/16/2022 urina lysis panel , auto Unknown Analyte Negati ve Not Available [facility] [address], [place], [address], 04/16/2022 09:14:11 04/16/1904/16/2022 urina lysis panel , auto Unknown Analyte Normal Not Available [facility] [address], [place], [address], 04/16/2022 09:14:11 04/16/1904/16/2022 urina lysis panel , auto Unknown Analyte Normal Not Available [facility] [address], [place], [address], 04/16/2022 09:14:11 04/16/1904/16/2022 urina lysis panel , auto Unknown Analyte Negati ve Not Available [facility] [address], [place], [address], 04/16/2022 09:14:04/16/1904/16/2022 urina lysis panel , auto Unknown Analyte Negati ve Not Available [facility] [address], [place], [address], 04/16/2022 09:14:04/16/1904/16/2022 urina lysis panel , auto Unknown Analyte 1 mg/dl Not Available [facility] [address], [place], [address], 04/16/2022 09:14:04/16/1904/16/2022 urina lysis panel , auto Unknown Analyte Normal 1 mg/dl Not Available [facility] [address], [place], [address], 04/16/2022 09:14:04/16/1904/16/2022 urina lysis panel , auto Unknown Analyte Negati ve Not Available [facility] [address], [place], [address], 04/16/2022 09:14:04/16/1904/16/2022 urina lysis panel , auto Unknown Analyte Negati ve Not Available [facility] [address], [place], [address], 04/16/2022 09:14:11 04/16/19 23 04/16/2022 urina lysis panel , auto Unknown Analyte Negati ve Not Available [facility] [address], [place], [address], 04/16/2022 09:14:11 04/16/19 23 04/16/2022 urina lysis panel , auto Unknown Analyte Negati ve Not Available [facility] [address], [place], [address], 04/16/2022 09:14:11 10/16/1910/15/2022 urina lysis panel , auto Unknown Analyte Clean Catch Not Available [facility] [address], [place], [address], 10/15/2022 08:51:32 10/16/19 23 10/15/2022 urina lysis panel , auto Unknown Analyte Yellow Not Available [facility] [address], [place], [address], 10/15/2022 08:51:32 10/16/19 23 10/15/2022 urina lysis panel , auto Unknown Analyte Clear Not Available [facility] [address], [place], [address], 10/15/2022 08:51:32 10/16/1910/15/2022 urina lysis panel , auto Unknown Analyte 1.025 Not Available [facility] [address], [place], [address], 10/15/2022 08:51:32 10/16/19 23 10/15/2022 urina lysis panel , auto Unknown Analyte 5.0 Not Available [facility] [address], [place], [address], 10/15/2022 08:51:32 10/16/19 23 10/15/2022 urina lysis panel , auto Unknown Analyte Negati ve Not Available [facility] [address], [place], [address], 10/15/2022 08:51:32 10/16/1910/15/2022 urina lysis panel , auto Unknown Analyte Negati ve Not Available [facility] [address], [place], [address], 10/15/2022 08:51:32 10/16/19 23 10/15/2022 urina lysis panel , auto Unknown Analyte Negati ve Not Available [facility] [address], [place], [address], 10/15/2022 08:51:32 10/16/19 23 10/15/2022 urina lysis panel , auto Unknown Analyte Normal Not Available [facility] [address], [place], [address], 10/15/2022 08:51:32 10/16/19 23 10/15/2022 urina lysis panel , auto Unknown Analyte Negati ve Not Available [facility] [address], [place], [address], 10/15/2022 08:51:32 10/16/19 23 10/15/2022 urina lysis panel , auto Unknown Analyte Normal Not Available [facility] [address], [place], [address], 10/15/2022 08:51:32 10/16/19 23 10/15/2022 urina lysis panel , auto Unknown Analyte Negati ve Not Available [facility] [address], [place], [address], 10/15/2022 08:51:32 10/16/19 23 10/15/2022 urina lysis panel , auto Unknown Analyte Negati ve Not Available [facility] [address], [place], [address], 10/15/2022 08:51:32 04/15/19 24 04/15/2023 urina lysis panel , auto Unknown Analyte Clean Catch Not Available [facility] [address], [place], [address], 04/15/2023 10:21:21 04/15/19 24 04/15/2023 urina lysis panel , auto Unknown Analyte Yellow Not Available [facility] [address], [place], [address], 04/15/2023 10:21:21 04/15/19 24 04/15/2023 urina lysis panel , auto Unknown Analyte Clear Not Available [facility] [address], [place], [address], 04/15/2023 10:21:21 04/15/19 24 04/15/2023 urina lysis panel , auto Unknown Analyte 1.020 Not Available [facility] [address], [place], [address], 04/15/2023 10:21:21 04/15/19 24 04/15/2023 urina lysis panel , auto Unknown Analyte 1.003- 1.035 Not Available [facility] [address], [place], [address], 04/15/2023 10:21:21 04/15/19 24 04/15/2023 urina lysis panel , auto Unknown Analyte 5.0 Not Available [facility] [address], [place], [address], 04/15/2023 10:21:21 04/15/19 24 04/15/2023 urina lysis panel , auto Unknown Analyte 5.0-8. 0 Not Available [facility] [address], [place], [address], 04/15/2023 10:21:21 04/15/19 24 04/15/2023 urina lysis panel , auto Unknown Analyte Negati ve Not Available [facility] [address], [place], [address], 04/15/2023 10:21:21 04/15/19 24 04/15/2023 urina lysis panel , auto Unknown Analyte Negati ve Not Available [facility] [address], [place], [address], 04/15/2023 10:21:21 04/15/19 24 04/15/2023 urina lysis panel , auto Unknown Analyte Negati ve Not Available [facility] [address], [place], [address], 04/15/2023 10:21:21 04/15/19 24 04/15/2023 urina lysis panel , auto Unknown Analyte Negati ve Not Available [facility] [address], [place], [address], 04/15/2023 10:21:21 04/15/19 24 04/15/2023 urina lysis panel , auto Unknown Analyte Negati ve Not Available [facility] [address], [place], [address], 04/15/2023 10:21:21 04/15/19 24 04/15/2023 urina lysis panel , auto Unknown Analyte Negati ve Not Available [facility] [address], [place], [address], 04/15/2023 10:21:21 04/15/19 24 04/15/2023 urina lysis panel , auto Unknown Analyte Normal Not Available [facility] [address], [place], [address], 04/15/2023 10:21:21 04/15/19 24 04/15/2023 urina lysis panel , auto Unknown Analyte Normal Not Available [facility] [address], [place], [address], 04/15/2023 10:21:21 04/15/19 24 04/15/2023 urina lysis panel , auto Unknown Analyte Negati ve Not Available [facility] [address], [place], [address], 04/15/2023 10:21:21 04/15/19 24 04/15/2023 urina lysis panel , auto Unknown Analyte Negati ve Not Available [facility] [address], [place], [address], 04/15/2023 10:21:21 04/15/19 24 04/15/2023 urina lysis panel , auto Unknown Analyte 1 mg/dl Not Available [facility], [facility] Urology [facility] [address], [place], [address], 04/15/2023 10:21:21 04/15/19 24 04/15/2023 urina lysis panel , auto Unknown Analyte Normal 1 mg/dl Not Available [facility] [address], [place], [address], 04/15/2023 10:21:21 04/15/19 24 04/15/2023 urina lysis panel , auto Unknown Analyte Negati ve Not Available [facility] [address], [place], [address], 04/15/2023 10:21:21 04/15/19 24 04/15/2023 urina lysis panel , auto Unknown Analyte Negati ve Not Available [facility], [facility] Urology [facility] [address], [place], [address], 04/15/2023 10:21:21 04/15/19 24 04/15/2023 urina lysis panel , auto Unknown Analyte Negati ve Not Available [facility] [address], [place], [address], 04/15/2023 10:21:21 04/15/19 24 04/15/2023 urina lysis panel , auto Unknown Analyte Negati ve Not Available [facility] [address], [place], [address], 04/15/2023 10:21:21 10/16/19 23 10/15/2022 XR, abdom en, 1 view [facility] [address] [place] [address] [place] [address] Patiimmanuel t Name: HILARIO Jacobsen : 1959 Nazario batista Orderi ng Provid er: CARROLL JOHNSO N EXAM DATE: 2022 EXAM: XR ABDOME N [facility] INFORM ATION: Histor y of urinar y tract stones . IMAGES PROVID ED: [facility] radiog raphic images of the abdome n. COMPAR SILVIA: None. FINDIN GS AND IMPRES JOHNNY: No stones or calcif icatio ns are seen in the expect ed locati on of the kidney s, ureter s or urinar y bladde r. No other signif icant abnorm ality. Interp reted By: Willy Mensah MD Electr onical ly Signed By: Willy Mensah MD on 10/16/19 10:56 AM [facility] [address] [place], [address], 10/16/2022 10:16:48 04/15/19 24 04/15/2023 XR, abdom en, 1 view [facility] [place] [facility] [address] [place] [address] [place] [address] Patiimmanuel t Name: HILARIO Jacobsen : 1959 Nazario batista Orderi ng Provid er: CARROLL SUEO N EXAM DATE: 2023 EXAM: XR ABDOME N [facility] INFORM ATION: Abdomi nal pain. Kidney stones IMAGES PROVID ED: KUB AP radiog raphic images of the abdome n. COMPAR SILVIA: None. FINDIN GS: No abnorm al intest inal gas patter n. Tiny subtle linear stone sugges tomas in the lower right renal bed. Unchan ged. No radiog raphic eviden ce of free intrap eriton eal air. IMPRES JOHNNY: Subtle tiny stone in the lower right renal bed Interp reted By: Grupo Paez MD Electr onical ly Signed By: Grupo Paez MD on 04/15/19 11:[address] Radiology [facility] [address] [place], [address], 04/15/2023 12:11:30 Result Notes None recorded. Problems No Known Problems Procedures Surgical History None recorded. Imaging Results Imaging Date Name Status LastModified by Organiz ation Details LastModified Time 10/15/2022 XR, abdomen, 1 view completed [facility] [address] [place], [address], 10/16/2022 10:16:48 04/15/2023 XR, abdomen, 1 view completed [address] Radiology [facility] [address] [place], [address], 04/15/2023 12:11:30 Procedure Notes None recorded. Medical Equipment None Reported. Allergies No known drug allergies Medications Name Sig Start Date Stop Date Status Note LastModified by Organization Details LastModified Time simvastatin 20 mg tablet Take 1 tablet every day by oral route. active Not Available Not Available No t Available fenofibrate 160 mg tablet Take 1 tablet every day by oral route. active Not Available Not Available No t Available Vitals Date Recorded Body height Body mass index (BMI) Body weight Provider Name and Address Organization Details Last Updated DateTime 10/13/2021 193.04 cm 26.2 kg/m2 76461.36 g Nano Conn [facility] 10/13/2021 11:31:20 Date Recorded Body height Body mass index (BMI) Body weight Provider Name and Address Organization Details Last Updated DateTime 10/15/2022 193.04 cm 26.4 kg/m2 87978.54 g Raquel Baron [facility] 10/15/2022 08:51:13 Date Recorded Body height Body mass index (BMI) Body weight Provider Name and Address Organization Details Last Updated DateTime 04/15/2023 193.04 cm 27.4 kg/m2 883773.28 g Tonya Linares [facility] 04/15/2023 10:23:41 Social History Question Answer Notes LastModified by Organizat ion Details LastModified Time Tobacco Smoking Status Current Every Day [facility]/13/2021 11:26:14 What Is Your Level Of Alcohol Consumption? Moderate [email or web address] Information not available 10/13/2021 Sex: Male Functional Status None recorded. Mental Status None recorded. Family History Relationship Description Onset Age of this Age Resolved Age Notes LastModified by Organization Details LastModified Time Father No current problems or disability [email or web address] Not available 10/13 11:26:01 Mother No current problems or disability [email or web address] Not available 10/13 11:26:01 Medical History Condition Response Kidney Stones Y Arthritis Y High Cholesterol Y Liver Disease Y Allergies/Hayfever Y Sleep Apnea Y Past Encounters Encounter ID Performer Location Encounter Start Date Encounter Closed Date Diagnosis/Indication Diagnosis SNOMED-CT Code Diagnosis ICD10 Code Diagnosis Note [id number] [place] [address] 07/15/2016 06:51:44 07/15/2016 06:51:44 [id number] MD SHREYA [facility]I [facility] [address] [place] [address] 10/13/2021 10:47:40 10/13/2021 12:09:21 Kidney stone 54943258 N20.0 Renal colic 3295133 N23 [id number] MD SHREYA [facility] [address] [place] [address] 04/16/2022 09:00:07 04/16/2022 09:44:01 Kidney stone 07102558 N20.0 Renal colic 7697630 N23 Primary er ectile dysfunction 622561945 N52.9 [id number] [facility] [address] [place] [address] 10/15/2022 08:01:41 10/15/2022 10:11:36 Kidney stone 81921458 N20.0 Renal colic 3838754 N23 Primary er ectile dysfunction 313713128 N52.9 [id number] CARROLL JONES MD [facility] [address] [place] [address] 04/15/2023 10:07:41 04/15/2023 10:34:59 Kidney stone 99375716 N20.0 Primary er ectile dysfunction 808861624 N52.9 Benign pro static hyperplasia with outflow obstruction 296685659 N40.1 Health Concerns Section Related Observation LastModified by Organization Detai ls LastModified Time None Recorded Concern Status LastModified by Organization Details LastModified Time None Recorded Advance Directives Directive None Recorded Payers Encounter Date Sequence Insurance Name Policy Number Policy Keyes Covered Member ID Keyes Member ID Guarantor Name 10/13/2021 1 [place] [id number] 2 Hilario Schofield [id number] Hilario Schofield 04/16/2022 1 [place] [id number] 2 Hilario Schofield [id number] Hilario Priscilla BasilioSchofield 10/15/2022 1 [place] [id number] 2 Hilario Schofield [id number] Hilario Priscilla Schofield 04/15/2023 1 [place] [id number] 2 Hilario Schofield [id number] Hilario Schofield Notes Date Note Type Note Provider Name and Address Organization Details Recorded Time 10/13/2021 text/html 61-year-old male in the office for my initial evaluation for discussion of urolithiasis. CT from 10/08/2021 showed bilateral nonobstructing renal stones up to 4 mm. He passed a stone 2 to 3 weeks ago. He voids every 2 hours with nocturia once nightly. No gross hematuria or dysuria. CARROLL JONES MD [address] [place] [address], [phone], [facility] 10/25/2021 14:27:47 04/16/2022 text/html 61-year-old male in the office for follow up evaluation of urolithiasis. CT from 10/08/2021 showed bilateral nonobstructing renal stones up to 4 mm.No flank or abdominal pain. No hesitancy or urgency. He voids every 2 hours with nocturia once nightly. No gross hematuria or dysuria. He uses sildenafil as needed for erectile dysfunction. CARROLL JONES MD [address] [place] [address], [phone] 04/19/2022 12:41:06 10/15/2022 text/html 62-year-old male in the office for follow up evaluation of urolithiasis. CT from 10/08/2021 showed bilateral nonobstructing renal stones up to 4 mm. He uses sildenafil as needed for erectile dysfunction. He denies bothersome lower urinary symptom, flank, or abdominal pain.No gross hematuria or dysuria. Daytime frequency 2-3 times. CARROLL JONES MD [address] [place] [address], [address], [facility] 10/15/2022 17:02:05 04/15/2023 text/html 63-year-old male in the office for follow up evaluation of urolithiasis. CT from 10/08/2021 showed bilateral nonobstructing renal stones up to 4 mm. He uses sildenafil as needed for erectile dysfunction. Occasional hesitancy. No urgency. Daytime frequency every 1-1.5 hours due to coffee intake. No nocturia when using CPAP. No gross hematuria. No dysuria. CARROLL JONES MD [address] [place] [address], [phone], [facility] 04/15/2023 14:00:31
--- OUTSIDE RECORDS SUMMARY | 2024-08-02 07:18 | XMS_ITS ---
Author Organization Unknown Medications Medication Instructions Effective Dates (start - stop) Status fenofibrate 160 MG Oral Tablet 2 771-25-70N87:00:00.000+00: 00 - Completed simvastatin 20 MG Oral Tablet 20 31-08-09:00:00.000+00: 00 - Completed ibuprofen 600 MG Oral Tablet 202 06-14-16:00:00.000+00: 00 - Completed prednisone 20 MG Oral Tablet 202 05-21-27:00:00.000+00: 00 - Completed - [id number]:00 :00.000+00: 00 - Completed fenofibrate 160 MG Oral Tablet 2 [id number]:00:00.000+00: 00 - Completed cefdinir 300 MG Oral Capsule 05-21-27:00:00.000+00: 00 - Completed fenofibrate 160 MG Oral Tablet 2 [id number]:00:00.000+00: 00 - Completed azelastine hydrochloride 0.1 37 MG/ACTUAT Metered Dose Nasal [place] [id number]:00:00 .000+00: 00 - Completed oxycodone hydrochloride 5 MG Oral Tablet [id number]:00:00.000+00: 00 - Completed simvastatin 20 MG Oral Tablet 20 03-06-07:00:00.000+00: 00 - Completed simvastatin 20 MG Oral Tablet 20 30-11-10:00:00.000+00: 00 - Completed simvastatin 20 MG Oral Tablet 20 02-03-09:00:00.000+00: 00 - Completed azelastine hydrochloride 0.1 37 MG/ACTUAT Metered Dose Nasal [place] [id number]:00:00 .000+00: 00 - Completed tizanidine 4 MG Oral Tablet 2022 -12-16T00:00:00.000+00: 00 - Completed fenofibrate 160 MG Oral Tablet 2 [id number]:00:00.000+00: 00 - Completed dextromethorphan hydrobromid e 3 MG/ML / promethazine hydrochloride 1.25 MG/ML Oral Solution [id number]:00:00.000+00: 00 - Completed Patient Care team information Name Category Status Period Participants - - Proposed period not known -
--- NOTE | 2024-08-02 07:30 | NM_ITS ---
APPROVED REPORT Exam: Nuclear Stress Test Indication: soa..fatigue Patient Location: Outpatient Stress Tech: Sofy Delong [place] Tech:Lali FarrellJOHNATHAN RT(R)(N) Ht: 6 ft 4 in Wt: 245 lbs HR: 63 bpm BP: 112/73 mmHg BSA: 2.41 m2 TID: 1.17 BMI: 29.8 History: soa..fatigue Procedure: Patient exercised on Devon protocol 6:30 minutes and sec, resting heart rate 63 bpm, resting blood pressure 112/73 mmHg, with exercise maximum heart rate achived was 136 bpm which is 87 % of the maximum predicted heart rate and blood pressure was 256/102 mmHg. Test was stopped due to fatigue and soa. Patient denied any complaint of chest pain. Patient has Average exercise capacity, achieved 7.4 METs of workload on treadmill, the blood pressure response to exercise was Hypertensive. Cardiac Stress and Resting SPECT Images: Cardiac Stress and Resting SPECT images were obtained using technetium 99m Myoview 31.6 mCi stress and 10.43 mCi at rest. Resting and stress imaging in supine and prone positions demonstrate a medium sized, moderate, partially reversible perfusion defect in the basal to mid inferior and lateral LV nicole. Gated imaging demonstrates normal global LV systolic function. There is mild hypokinesis of the basal inferior LV wall. LVEF is calculated at 68%. Conclusion: Medium sized, moderate, partially reversible perfusion defect in the basal to mid inferior and lateral LV nicole. Findings are suggestive of partial reversible ischemia. Gated imaging demonstrates normal global LV systolic function. There is mild hypokinesis of the basal inferior LV wall. LVEF is calculated at 68%. Electronically signed by : Krysta Epperson MD 08/02/2024 10:44:04
--- NOTE | 2024-08-02 07:51 | US_ITS ---
FINAL REPORT CLINICAL HISTORY: Leg pain FINDINGS: ANKLE-BRACHIAL PRESSURE INDICES Pressure indices are as follows: RIGHT LOWER EXTREMITY: Ankle-brachial pressure index: 1.02 Comments: Normal LEFT LOWER EXTREMITY: Ankle-brachial pressure index: 0.89 Comments: Mild to moderate peripheral vascular disease IMPRESSION: No evidence of significant obstructive peripheral vascular disease of the right lower extremity. Mild to moderate peripheral vascular disease left lower extremity. Reviewed, Interpreted and Dictated by Fiona Pedersen MD Transcribed by Bonita Wylie Authenticated and . [facility]
[2024-08-02] MEDS: SODIUM CHLORIDE 0.9% 10ML SYR (RAD ONLY) 10 ML IV ×2 (09:18)
[2024-08-02] MEDS: ISOTOPE MYOVIEW (PER STUDY) 1 DOSE IV (09:18)
== END 2024-08-02 23:59 | disposition home or self-care (01) ==
LOC: RAD 07:17
PROVIDERS: PCP Family Medicine; Visit Provider Internal Medicine
DX: R06.02 Shortness of breath (principal); R53.83 Other fatigue; R93.1 Abnormal findings on diagnostic imaging of heart and coronary circulation; E78.5 Hyperlipidemia, unspecified; I73.9 Peripheral vascular disease, unspecified; R73.03 Prediabetes
CPT/HCPCS: 78452; 93017; 93018; 93923; A9502

== ENCOUNTER 2024-08-03 12:47 | Observation (INO) | payer MEDICARE, SELFPAY ==
[2024-08-03] VITALS (20 sets, daily range): BP systolic 108–157; BP diastolic 68–89; PULSE 51–61; RESP 14–20; TEMP 36.4–36.9; O2SAT 91–100; BMI 29.7
--- NOTE | 2024-08-03 07:23 | IR_ITS ---
APPROVED REPORT Patient Location: Outpatient PROCEDURES Right radial arterial access Catheter placement in the right subclavian artery Right subclavian artery retrograde angiogram Right femoral artery access Catheter placement in the right subclavian artery Right subclavian artery antegrade angiogram Left heart catheterization Left ventriculogram Selective coronary angiogram Drug-eluting stent deployment to the proximal and mid dominant right coronary artery with additional noncontiguous stenting of the distal dominant right coronary Intravascular ultrasound to the right coronary artery Bare-metal self-expanding stent deployment to the right subclavian artery Post stent deployment antegrade right subclavian artery angiogram INDICATION Subclavian steal, Right subclavian artery subclavian stenosis, Angina pectoris, Abnormal stress test, Syncope, Coronary artery disease, Informed consent was obtained prior to the procedure. COMPLICATIONS NONE Estimated Blood Loss: LESS THAN 10 ML TECHNIQUE One percent lidocaine used to anesthetize the right anterior aspect of the wrist. The right radial artery was accessed via the Seldinger technique. A 6 Montenegrin sheath was placed in the right radial artery. 2.5 mg of Verapamil, 800 mcg of nitroglycerin, 1mg Lidocaine and 5000 U Heparin were given through the arterial sheath. A 6 Montenegrin JL 3 guide catheter was advanced over the wire would not traverse the subclavian artery. Retrograde angiography was performed after the catheter was placed in the right subclavian artery. Following this 1% lidocaine was used anesthetize the right groin the right femoral artery is accessed via the Salinger technique and a 4 Montenegrin sheath is placed in the right femoral artery. A JR4 catheter was placed in the right subclavian artery and antegrade angiography was performed. A JL 4 catheter was used to perform left coronary artery angiography. Eventually an AR-1 catheter was used to perform right coronary artery angiography. At the end of the diagnostic procedure therapeutic heparin was administered giving a therapeutic ACT and the 4 Montenegrin femoral sheath was upsized to a 6 Montenegrin sheath. A 6 Montenegrin JR4 catheter was used to cannulate the right subclavian artery and an advantage wire was used to traverse the subtotal occlusion of the right subclavian artery. The short hydrophilic radial sheath was exchanged for a 75 cm hydrophilic sheath. The sheath was advanced to the distal right subclavian artery. An additional advantage wire was then used to traverse the subtotal occlusion in a retrograde manner in the right subclavian artery. The antegrade wire was then removed from the JR4 catheter. A 12 mm x 40 mm self-expanding bare-metal stent was advanced into the radial sheath and the JR4 catheter was used to perform simultaneous angiography for exact placement. The stent was placed distal to the right common carotid artery and then deployed. Following this a 10 mm x 20 mm balloon was advanced and deployed at 10 wilner to post dilate the right subclavian artery. Excellent angiograph results were obtained. Following this the 6 Montenegrin JR4 catheter was advanced into the right coronary artery and a Choice PT extra-support wire was placed distally. A 4 mm x 38 mm Jere frontier stent was deployed at 20 wilner in the proximal segment. An additional 4 mm x 15 mm Jere frontier stent was placed distal to the for stent is still overlapping and deployed at 16 wilner. The balloon was brought back and deployed at 16 and then 20 wilner to match the 2 stents. A 3.5 x 18 mm Jere frontier stent was placed distally and deployed at 20 wilner. Following this intravascular ultrasound probe was advanced which demonstrated small area of the stent was not adequately expanded therefore a 4 mm x 15 mm balloon was deployed at 20 and then 24 wilner in the proximal and midportion of the 38 mm stent. Excellent intragraft results were obtained. At the end of the procedure the apparatus was was removed the groin is reprepped closure change sheath was removed good hemostasis was achieved using Perclose device patient was transferred to the postop putting in stable condition ANGIOGRAPHIC RESULTS The left main artery Has an ostial 40 to 50% eccentric stenosis The left anterior descending artery Is proximally normal and then has mid vessel long 50 to 60% concentric stenosis which extends into the proximal portion of the distal LAD segment. The circumflex artery Is large and codominant with proximal 20% stenoses and a 70% stenosis in a proximal highly tortuous first obtuse marginal artery. The second large obtuse marginal artery has a proximal 70% stenosis The right coronary artery Is dominant and has proximal 50 and 60% stenoses with a distal concentric 70% stenosis The [place] ventriculogram reveals Not performed The left ventricular end-diastolic pressure Not measured IMPRESSION Severe right subclavian artery stenosis Successful stenting of the right subclavian artery critical stenosis reduced to less than 10% with 1 bare-metal self-expanding stent Severe disease throughout the right coronary artery with successful stenting of the proximal to mid right coronary artery and distal right coronary artery in a noncontiguous manner severe disease reduced to 0% with 3 stents as described above Successful intravascular ultrasound of the right coronary artery to help guide revascularization Persistent moderate stenosis in the left main artery possibly severe with persistent severe disease in the 1st and 2nd obtuse marginal artery Moderate to severe disease in the mid to distal LAD which is probably too distal for appropriate IVAN grafting PLAN 1. Plavix and aspirin 2. Patient requires admission overnight due to the renal insufficiency and complexity of the procedure with dual arterial access. 3. Regular neurochecks should be performed given the flow reversal within the vertebral artery following revascularization 4. LDL less than 55 to achieve that high intensity statin 5. Avoidance of tobacco products 6. In 1 month patient be brought back to the [employer] and will undergo radial arterial access with planned stenting of the 1st and 2nd obtuse marginal artery and intravascular ultrasound of the left main artery with possible stenting 7. The LAD will most likely be treated medically 8. Cardiac rehabilitation Electronically signed by : Iker Senior MD 08/03/2024 12:51:57
[2024-08-03 10:30] LABS: Basophils # 0.1 K/mm3 (0-0.2); Basophils % 0.9 % (0.1-2.0); Eosinophils # 0.2 Kmm3 (0.0-0.4); Eosinophils % 2.5 % (0.1-12.0); Hematocrit 46.3 % (42.0-52.0); Hemoglobin 16.1 g/dL (14.1-18.0); Mean Corpuscular HGB Conc 34.8 g/dL (31.8-35.4); Mean Corpuscular Hemoglobin 31.5 pg (27.0-31.2); Mean Corpuscular Volume 90.6 fl (80-94); Mean Platelet Volume 10.2 fl (7.4-10.4); Monocytes # 0.7 K/mm3 (0.1-1.0); Neutrophils # 4.8 K/mm3 (1.8-7.8); Neutrophils % 60.8 % (37.0-80.0); Nucleated Red Blood Cells # 0 10^3/uL; Nucleated Red Blood Cells % 0 %; Platelet Count 224 K/mm3 (142-424); Red Blood Count 5.11 M/mm3 (4.60-6.20); Red Cell Distribution Width 12.8 % (11.5-17.5); Red Cell Distribution Width-SD 42.2 fL; White Blood Count 7.9 K/mm3 (4.8-10.8)
[2024-08-03 10:36] LABS: Chloride 108 mmol/L (98-107); Potassium 4.5 mmoL/L (3.5-5.1); Sodium 142 mmol/L (136-145)
[2024-08-03 10:39] LABS: Anion Gap 13.5 mEq/L (5-15); Blood Urea Nitrogen 19 mg/dl (9-20); Calcium 9.7 mg/dl (8.4-10.2); Carbon Dioxide 25 mmol/L (22.0-30.0); Creatinine Clearance Estimated 90 mL/min (50-200); Estimated Glomerular Filt Rate 55 ml/min (>60); GFR (African American) 67 ML/MIN (>60); Glucose 122 mg/dl (74-100)
[2024-08-03] MEDS: LIDOCAINE 1% 10ML MDV 10 ML IJ (10:49)
[2024-08-03] MEDS: HEPARIN 1,000 UNITS/500ML NS (CATH LAB) 3000 UNIT IV (10:49)
[2024-08-03] MEDS: 0.9 % SODIUM CHLORIDE 500 ML 25 ML IV (10:49)
[2024-08-03] MEDS: diphenhydrAMINE 50MG/ML VIAL 50 MG IV (10:50)
[2024-08-03] MEDS: HEPARIN 1,000 UNITS/ML 10ML VIAL (CATH LAB) 5000 UNIT IV ×2 (10:50→12:06)
[2024-08-03] MEDS: NITROGLYCERIN 800MCG/8ML SYR (CATH LAB) 800 MCG IA (10:50)
[2024-08-03] MEDS: VERAPAMIL 2.5MG/ML 2ML VIAL 2.5 MG IV (10:50)
[2024-08-03] MEDS: MIDAZOLAM HCL 1MG/ML 5ML VIAL 1 MG IV (12:23)
[2024-08-03] MEDS: FENTANYL 100MCG/2ML VIAL 50 MCG IV (12:23)
[2024-08-03] MEDS: CLOPIDOGREL 300MG TABLET 600 MG PO (12:48)
[2024-08-03] MEDS: IOPAMIDOL-370 (76%);100ML BOTTLE 175 ML IV (13:47)
[2024-08-03 13:51] LABS: CATHL Activated Clotting Time > 400 SEC (74-125)
--- NOTE | 2024-08-03 13:53 | PC.NURSE ---
arrived to floor by stretcher from labor delivery rn at 13:40
--- NOTE | 2024-08-03 14:33 | P.HP_ITS ---
History of Present Illness *Admission Date: 08/03/24 *Reason for visit:: Subclavian steal, coronary artery disease *History of present illness: 64-year-old male who presented for elective right sided subclavian stenosis with findings of subclavian steal. Tolerated procedure well with stenting of right subclavian artery as well as stent to RCA. Cardiology requested admission for monitoring overnight and serial neurochecks due to potential risk for fluctuations in cerebral blood flow. Denies any chest pain, shortness of breath, nausea or vomiting. Perclose device to right femoral approach. Laying flat at time of evaluation. Stable on room air. [facility] Disclaimer: The information contained in this section may have been updated after the patient was seen, as this information can be updated by other users. Medical History Borderline diabetes HLD (hyperlipidemia) Bounding pulse Elevated coronary artery calcium score Claudication Skin cyanosis SOB (shortness of breath) Fatigue Family History Other Family history of acute heart failure Skin cancer Social History Smoking Status: Current every day smoker tobacco type: cigarettes packs per day: 1 second hand exposure: No alcohol intake: never substance use type: denies use current occupational status: employed and retired Travel in the last 8 weeks: None household members: spouse housing: house current occupational exposures/hazards: Yes caffeine: Yes Have you lived/traveled outside [place] in past 30 days?: No Contact w/someone who lives/traveled outside US past 30 days?: No Exposure to someone with infectious disease in past 14 days?: No Do you have a fever (greater than 100.4 F or 38 C)?: No Have you tested positive for COVID-19: No Exposed to someone with COVID-19 in past 14 days?: No Do you have a sore throat?: No Do you have a cough?: No Do you have any weakness?: No Are you experiencing any nausea/vomitting?: No Do you have any diarrhea?: No Are you experiencing any unusual bleeding?: No Do you have any muscle aches/pain?: No Do you have any abdominal pain?: No Are you experiencing loss of taste or smell?: No Other Medical History Have you received the Flu Vaccine for this season: Yes Have you received the Pneumonia Vaccine: Yes Review of Systems Review of Systems Review of systems (narrative): 14 point review of systems performed, pertinent positives and negatives as per [facility] Meds Home Medications and Allergies Home Medications ?Medication ?Instructions ?Recorded ?Confirmed ?Type aspirin 81 mg chewable tablet 81 mg PO DAILY 09/24/22 08/03/24 History fenofibrate 160 mg tablet 160 mg PO DAILY 07/25/24 08/03/24 History icosapent ethyl 1 gram capsule 2 g PO BID 07/25/24 08/03/24 History (Vascepa) magnesium oxide 400 mg (241.3 mg 400 mg PO BID 07/25/24 08/03/24 History magnesium) tablet nitroglycerin 0.4 mg sublingual 0.4 mg sublingual Q5-15M PRN chest 07/25/24 08/03/24 Rx tablet pain #30 tabs metoprolol succinate 25 mg 25 mg PO DAILY #30 tabs 08/02/24 08/03/24 Rx tablet,extended release 24 hr (Toprol XL) atorvastatin 80 mg tablet 80 mg PO HS 08/03/24 08/03/24 History clopidogrel 75 mg tablet (Plavix) 75 mg PO DAILY #30 tabs 08/03/24 Rx New Prescriptions to Start Prescriptions: clopidogrel [Plavix] Iker Senior Allergies Allergy/AdvReac Type Severity Reaction Status Date / Time No Known Allergies Allergy Verified 08/02/24 14:44 Exam Data for Last 24 hours Vital signs and Labs for Last 24 Hours: Temp Pulse Resp BP Pulse Ox O2 Del Method 97.6 F 57 L 17 138/80 97 Room Air 08/03/24 13:45 08/03/24 14:15 08/03/24 14:15 08/03/24 14:15 08/03/24 14:15 08/03/24 14:15 Laboratory Results - last 24 hr 08/03/24 10:23: WBC 7.9, RBC 5.11, Hgb 16.1, Hct 46.3, MCV 90.6, MCH 31.5 H, MCHC 34.8, RDW 12.8, Plt Count 224, MPV 10.2, Neut % (Auto) 60.8, Lymph % (Auto) 26.0, [place] % (Auto) 9.0, Eos % (Auto) 2.5, Baso % (Auto) 0.9, Neut # (Auto) 4.8, Lymph # (Auto) 2.0, [place] # (Auto) 0.7, Eos # (Auto) 0.2, Baso # (Auto) 0.1, Sodium 142, Potassium 4.5, Chloride 108 H, Carbon Dioxide 25, Anion Gap 13.5, BUN 19, Creatinine 1.30 H, Estimated Creat Clear 90, Estimated GFR 55 L, Est GFR ( Amer) 67, Glucose 122 H, Calcium 9.7 08/03/24 11:38: Activated Clotting Time > 400 H* I & O for Last 24 hours: Intake & Output 07/31/24 08/01/24 08/02/24 08/03/24 23:59 23:59 23:59 23:59 Weight 110.762 kg Constitutional Constitutional: no acute distress and cooperative *Routine HEENT Exam Head: Present normocephalic Eye: Present EOMI and PERRL ENT: Present mucous membranes moist *Routine Neck Exam Neck: Present supple; Absent lymphadenopathy *Routine Respiratory Exam Respiratory: Present CTA bilaterally *Routine Cardiovascular Exam Cardiovascular: Present RRR *Routine Abdominal Exam Abdominal: Present soft and normoactive bowel sounds; Absent tenderness *Routine Rectal Exam Rectal:: deferred *Routine Genitalia Exam Genitalia:: deferred *Routine Extremities Exam Extremities: Absent cyanosis, clubbing or edema *Routine Skin Exam Skin: Present warm; Absent rash *Routine Neurological Exam Neurological: Present alert, oriented X3 and moving all extremities; Absent altered mental status Assessment and Plan *Assessment and plan (1) Atypical angina: Status: Acute Category: Medical Code(s): I20.89 - Other forms of angina pectoris (2) Stenosis of right subclavian artery: Status: Acute Category: Medical Code(s): I77.1 - Stricture of artery (3) HLD (hyperlipidemia): Status: Acute Qualifiers: Hyperlipidemia type: other hyperlipidemia Qualified Code(s): E78.49 - Other hyperlipidemia Category: Medical Code(s): E78.5 - Hyperlipidemia, unspecified (4) Hypertension: Status: Acute Category: Medical Code(s): I10 - Essential (primary) hypertension Plan 64-year-old male who presented for elective outpatient procedure. Underwent elective cath to evaluate right subclavian artery stenosis and coronary artery disease. Received multiple stents. Discussed case with cardiology, request admission for monitoring overnight and serial labs to monitor kidney function. Also needs neurochecks due to stenting of right subclavian artery in the setting of subclavian steal. I agreed to admit for further care. Hemodynamically stable. Problems addressed as follows: CAD Right subclavian stenosis with subclavian steal Hypertension Hyperlipidemia . 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 - Cardiology performed procedure that found severe right subclavian stenosis. Successful stenting with 1 bare-metal stent. Also found to have severe disease throughout right coronary artery with successful stenting of the proximal to mid right coronary artery and distal right coronary artery with 3 stents. Still has persistent moderate stenosis in the left main although moderate to severe disease in the mid to distal LAD - Continue aspirin 81 mg daily, Plavix 75 mg daily. - Continue Lipitor 80 mg nightly fenofibrate 160 mg daily, - Continue metoprolol succinate 25 mg daily - Plan to bring patient back in 1 month to the [facility] to address obtuse marginal arteries and evaluate left main. BUN 19, creatinine 1.3, potassium 4.5, sodium 142. Repeat CBC, CMP, magnesium ordered for the morning. White count normal 7.9, hemoglobin 16. Neurochecks as needed Full code Heparinized in [facility] Cardiac diet
[2024-08-03] MEDS: LACTATED RINGERS 1000ML 1,000 ML 100 ML IV (17:21)
[2024-08-03] MEDS: CALCIUM CARBONATE 500MG CHEWTAB 500 MG PO (19:33)
[2024-08-03] MEDS: ATORVASTATIN 40MG TABLET 80 MG PO (20:59)
[2024-08-03] MEDS: PANTOPRAZOLE 40MG VIAL 40 MG IV (20:59)
[2024-08-04] VITALS (7 sets, daily range): BP systolic 110–150; BP diastolic 69–88; PULSE 59–68; RESP 14–19; TEMP 36.7–36.9; O2SAT 95–98; BMI 30.2
[2024-08-04 07:18] LABS: Basophils # 0.1 K/mm3 (0-0.2); Basophils % 0.8 % (0.1-2.0); Eosinophils # 0.2 Kmm3 (0.0-0.4); Eosinophils % 2.4 % (0.1-12.0); Lymphocytes # 2.1 K/mm3 (0.7-4.5); Lymphocytes % 27.3 % (10-50); Mean Corpuscular HGB Conc 34.6 g/dL (31.8-35.4); Mean Corpuscular Hemoglobin 31.3 pg (27.0-31.2); Mean Corpuscular Volume 90.5 fl (80-94); Mean Platelet Volume 10.4 fl (7.4-10.4); Monocytes # 0.7 K/mm3 (0.1-1.0); Monocytes % 9.4 % (1.7-9.3); Neutrophils # 4.6 K/mm3 (1.8-7.8); Neutrophils % 59.5 % (37.0-80.0); Nucleated Red Blood Cells # 0 10^3/uL; Nucleated Red Blood Cells % 0 %; Platelet Count 169 K/mm3 (142-424); Red Blood Count 4.53 M/mm3 (4.60-6.20); Red Cell Distribution Width 12.7 % (11.5-17.5); Red Cell Distribution Width-SD 41.7 fL; White Blood Count 7.8 K/mm3 (4.8-10.8)
[2024-08-04 07:22] LABS: Chloride 106 mmol/L (98-107)
[2024-08-04 07:23] LABS: Potassium 3.7 mmoL/L (3.5-5.1); Sodium 137 mmol/L (136-145)
[2024-08-04 07:26] LABS: Anion Gap 10.7 mEq/L (5-15); Blood Urea Nitrogen 19 mg/dl (9-20); Calcium 8.9 mg/dl (8.4-10.2); Carbon Dioxide 24 mmol/L (22.0-30.0); Creatinine Clearance Estimated 107 mL/min (50-200); Estimated Glomerular Filt Rate 67 ml/min (>60); GFR (African American) 81 ML/MIN (>60); Glucose 105 mg/dl (74-100)
[2024-08-04 07:42] LABS: Hemoglobin 14.2 g/dL (14.1-18.0)
[2024-08-04 08:33] LABS: Cholesterol 98 mg/dl (140-200); HDL Cholesterol 20 mg/dl (40-60); Triglycerides 164 mg/dl (30-150); VLDL Cholesterol 33 mg/dL (0-40)
[2024-08-04 08:44] LABS: Direct LDL Cholesterol 48.13 mg/dL (100-129)
[2024-08-04 09:04] LABS: Chol/HDL Ratio 4.9 (1-3.5); Thyroid Stimulating Hormone 1.46 uIU/mL (0.465-4.68)
[2024-08-04] MEDS: ASPIRIN EC 81MG TABLET 81 MG PO (09:10)
[2024-08-04] MEDS: CLOPIDOGREL 75MG TAB 75 MG PO (09:10)
[2024-08-04] MEDS: FENOFIBRATE 54MG TABLET 162 MG PO (09:11)
[2024-08-04 09:46] LABS: Hemoglobin A1C 6.3 % (4.0-6.0)
[2024-08-04] MEDS: METOPROLOL SUCCINATE XL 25MG TABLET 25 MG PO (11:36)
--- NOTE | 2024-08-04 12:50 | EXP.DC.SUM ---
General Admission date:: 08/03/24 HPI HPI HPI: 64-year-old male who presented for elective right sided subclavian stenosis with findings of subclavian steal. Tolerated procedure well with stenting of right subclavian artery as well as stent to RCA. Cardiology requested admission for monitoring overnight and serial neurochecks due to potential risk for fluctuations in cerebral blood flow. Denies any chest pain, shortness of breath, nausea or vomiting. Perclose device to right femoral approach. Laying flat at time of evaluation. Stable on room air. Hospital Course Hospital Course Hospital Course: Hilario Schofield is a 64-year-old male who presented for elective outpatient procedure. Underwent elective LHC to evaluate right subclavian artery stenosis and coronary artery disease. Received 3 stents to RCA, 1 stent to right subclavian artery. #CAD #Right subclavian stenosis with subclavian steal #Hypertension #Hyperlipidemia ? 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 - Cardiology performed LHC that found severe right subclavian stenosis. Successful stenting with 1 bare-metal stent. Also found to have severe disease throughout RCA with successful stenting of the proximal to mid right coronary artery and distal right coronary artery with 3 stents. Still has persistent moderate stenosis in the left main although moderate to severe disease in the mid to distal LAD, which will be addressed in 1 month. - Continue aspirin 81 mg daily, started Plavix 75 mg daily. - Continue Lipitor 80 mg nightly fenofibrate 160 mg daily, - Reduced metoprolol succinate to 12.5 mg daily, heart rate in the 50s though asymptomatic. Will follow-up with cardiology for further recommendations. ? Advised to follow-up with cardiology within 2 weeks for further evaluation and management. Exam Data for Last 24 hours Vital signs and Labs for Last 24 Hours: Temp Pulse Resp BP Pulse Ox O2 Del Method 98.2 F 68 16 150/88 H 98 Room Air 08/04/24 12:00 08/04/24 12:00 08/04/24 12:00 08/04/24 12:00 08/04/24 12:00 08/04/24 12:00 Laboratory Results - last 24 hr 08/03/24 11:38: Activated Clotting Time > 400 H* 08/04/24 06:30: WBC 7.8, RBC 4.53 L, Hgb 14.2 D, Hct 41.0 L, MCV 90.5, MCH 31.3 H, MCHC 34.6, RDW 12.7, Plt Count 169, MPV 10.4, Neut % (Auto) 59.5, Lymph % (Auto) 27.3, [place] % (Auto) 9.4 H, Eos % (Auto) 2.4, Baso % (Auto) 0.8, Neut # (Auto) 4.6, Lymph # (Auto) 2.1, [place] # (Auto) 0.7, Eos # (Auto) 0.2, Baso # (Auto) 0.1, Sodium 137, Potassium 3.7, Chloride 106, Carbon Dioxide 24, Anion Gap 10.7, BUN 19, Creatinine 1.10, Estimated Creat Clear 107, Estimated GFR 67, Est GFR ( Amer) 81 D, Glucose 105 H, Hemoglobin A1c 6.3 H, Calcium 8.9, Triglycerides 164 H, Cholesterol 98 L, LDL Cholesterol Direct 48.13 L, VLDL Cholesterol 33, HDL Cholesterol 20 L, Cholesterol/HDL Ratio 4.9 H, TSH 1.46 I & O for Last 24 hours: Intake & Output 08/01/24 08/02/24 08/03/24 08/04/24 23:59 23:59 23:59 23:59 Intake Total 690 / 1040 685 / 685 Output Total 400 / 525 125 / 125 Balance 290 / 515 560 / 560 Weight 110.762 kg 112.763 kg Constitutional Constitutional: no acute distress *Routine HEENT Exam Head: Present normocephalic Eye: Present EOMI and PERRL ENT: Present mucous membranes moist *Routine Neck Exam Neck: Present supple; Absent lymphadenopathy *Routine Respiratory Exam Respiratory: Present CTA bilaterally *Routine Cardiovascular Exam Cardiovascular: Present RRR *Routine Abdominal Exam Abdominal: Present soft and normoactive bowel sounds; Absent tenderness *Routine Extremities Exam Extremities: Absent cyanosis, clubbing or edema *Routine Skin Exam Skin: Present warm; Absent rash *Routine Neurological Exam Neurological: Present alert and oriented X3 Results Data Completed and Pending Labs on day of discharge: Labs from last 24 hours 08/04/24 08/03/24 06:30 11:38 WBC 7.8 RBC 4.53 L Hgb 14.2 D Hct 41.0 L MCV 90.5 MCH 31.3 H MCHC 34.6 RDW 12.7 Plt Count 169 MPV 10.4 Neut % (Auto) 59.5 Lymph % (Auto) 27.3 [place] % (Auto) 9.4 H Eos % (Auto) 2.4 Baso % (Auto) 0.8 Neut # (Auto) 4.6 Lymph # (Auto) 2.1 [place] # (Auto) 0.7 Eos # (Auto) 0.2 Baso # (Auto) 0.1 Activated Clotting Time > 400 H* Sodium 137 Potassium 3.7 Chloride 106 Carbon Dioxide 24 Anion Gap 10.7 BUN 19 Creatinine 1.10 Estimated Creat Clear 107 Estimated GFR 67 Est GFR ( Amer) 81 D Glucose 105 H Hemoglobin A1c 6.3 H Calcium 8.9 Triglycerides 164 H Cholesterol 98 L LDL Cholesterol Direct 48.13 L VLDL Cholesterol 33 HDL Cholesterol 20 L Cholesterol/HDL Ratio 4.9 H TSH 1.46 DS: Diagnosis Discharge Diagnosis (1) Atypical angina: Status: Acute Code(s): I20.89 - Other forms of angina pectoris (2) Stenosis of right subclavian artery: Status: Acute Code(s): I77.1 - Stricture of artery (3) HLD (hyperlipidemia): Status: Acute Code(s): E78.5 - Hyperlipidemia, unspecified Qualifiers: Hyperlipidemia type: other hyperlipidemia Qualified Code(s): E78.49 - Other hyperlipidemia (4) Hypertension: Status: Acute Code(s): I10 - Essential (primary) hypertension Meds Home Medications and Allergies Home Medications ?Medication ?Instructions ?Recorded ?Confirmed ?Type aspirin 81 mg chewable tablet 81 mg PO DAILY 09/24/22 08/03/24 History fenofibrate 160 mg tablet 160 mg PO DAILY 07/25/24 08/03/24 History icosapent ethyl 1 gram capsule 2 g PO BID 07/25/24 08/03/24 History (Vascepa) magnesium oxide 400 mg (241.3 mg 400 mg PO BID 07/25/24 08/03/24 History magnesium) tablet nitroglycerin 0.4 mg sublingual 0.4 mg sublingual Q5-15M PRN chest 07/25/24 08/03/24 Rx tablet pain #30 tabs atorvastatin 80 mg tablet 80 mg PO HS 08/03/24 08/03/24 History clopidogrel 75 mg tablet (Plavix) 75 mg PO DAILY #30 tabs 08/03/24 Rx metoprolol succinate 25 mg 12.5 mg (1/2 x 25 mg) PO DAILY 08/04/24 08/03/24 Rx tablet,extended release 24 hr days #30 tabs (Toprol XL) New Prescriptions to Start Prescriptions: clopidogrel [Plavix] Iker Senior Allergies Allergy/AdvReac Type Severity Reaction Status Date / Time No Known Allergies Allergy Verified 08/02/24 14:44 Discharge Plan Disposition Patient Disposition: Home, Self-Care Condition: Fair Follow up Plan Follow up with: Bina Garvey [Primary Care Provider] - Enter time for follow up (please call for appointment) Iker Senior MD [Staff Physician] - 08/13/24 10:00 am Prescriptions/Medication Reconciliation: New clopidogrel [Plavix] 75 mg Tablet 75 mg PO DAILY Qty: 30 6RF Continued magnesium oxide 400 mg (241.3 mg magnesium) tablet 400 mg PO BID Patient Comments: TAKE 1 TABLET BY MOUTH IN THE MORNING AND 1 TABLET BEFORE BEDTIME fenofibrate 160 mg tablet 160 mg PO DAILY icosapent ethyl [Vascepa] 1 gram capsule 2 g PO BID nitroglycerin 0.4 mg tablet, sublingual 0.4 mg sublingual Q5-15M PRN (Reason: chest pain) Qty: 30 1RF Rx Instructions: do not exceed 3 doses per episode aspirin 81 mg Tablet,Chewable 81 mg PO DAILY atorvastatin 80 mg tablet 80 mg PO HS Changed metoprolol succinate [Toprol XL] 25 mg tablet extended release 24 hr 12.5 mg PO DAILY 30 Days Qty: 30 5RF Problem Reconciliation Problems Reviewed?: Yes Patient Discharge Instructions Patient Instructions: DI for Cardiac Catheterization, Surgical Site Infection, DI for Moderate Sedation Print Language: Chinese Providers Primary Care Provider: Bina Garvey Admit Provider: Cole Espitia Attending Provider: Cole Espitia
--- NOTE | 2024-08-06 12:57 | SW/DCPLANNER ---
Spoke with patient on the phone. Patient stated that he is doing very well. Patient stated that he is aware of his upcoming appointments. Patient stated that he was able to get his new medicine picked up. Patient stated that he has no concerns or questions at this time. Sussy Camarillo
== END 2024-08-04 13:58 | disposition home or self-care (01) ==
LOC: 2ND 12:50
PROVIDERS: Internal Medicine; Student in an Organized Health Care Education/Training Program; Admitting Provider Internal Medicine Adolescent Medicine; PCP Family Medicine; Visit Provider Internal Medicine Adolescent Medicine
DX: I25.118 Atherosclerotic heart disease of native coronary artery with other forms of angina pectoris (principal); I77.1 Stricture of artery; I47.20 Ventricular tachycardia, unspecified; R94.39 Abnormal result of other cardiovascular function study; F17.210 Nicotine dependence, cigarettes, uncomplicated; I10 Essential (primary) hypertension; E78.5 Hyperlipidemia, unspecified; R93.1 Abnormal findings on diagnostic imaging of heart and coronary circulation; Z79.899 Other long term (current) drug therapy; R06.02 Shortness of breath
CPT/HCPCS: 37236; 80048; 80061; 83036; 84443; 85025; 85347; 92928; 92978; 93458; 99152; 99153; C1725; C1760; C1769; C1874; C1876; C1894; C9600; G0378; J1200; J1644; J3010; J7120; Q9967

== ENCOUNTER 2024-08-10 07:50 | Outpatient (CLI) | payer MEDICARE, SELFPAY ==
--- NOTE | 2024-08-10 | CA_ITS ---
APPROVED REPORT EXAM: Comprehensive 2D, Doppler, and color-flow Echocardiogram [employer] Lining Finisher: JULIO Malik, RVS Ht: 6 ft 4 in Wt: 247lbs BSA: 2.42 BP: 160/88 mmHg Indications: SOA, Tachycardia, CAD-stents, Ex-smoker, CP 2D Dimensions IVSd 0.97 cm LVEF (Visual) 79.30 % PWd 1.09 cm LVDd 4.26 cm LVDs 2.23 cm Left Atrium 3.51 cm M-Mode Dimensions LA Diam 4.05 cm (1.9-4.0) EPSs 0.64 cm TAPSE 2.34 (<1.7) LV Diastology E Decel Time 303 (160-240 msec) E/A Ratio 1.07 MED A' 10.40 cm/s LAT A' 14.80 cm/s Aortic Valve ROMÁN Index 1.19 cm2/m2 AoV Peak Michael. 122.0 (50-130 cm/s) AO Peak GR. 6.00 mmHg AO Mean GR. 3.10 (<5 mmHg) AO VTI 24.5 (18-25 cm) ROMÁN (VTI) 2.95 (2.5-4.5 cm2) Mitral Valve MV A Velocity 79.0 (40-130 cm/s) E/A Ratio 1.07 Tricuspid Valve TR P. Velocity 166.00 cm/s RAP Estimate 10.00 mmHg RVSP 21.10 mmHg Left Ventricle The left ventricle is normal size. The left ventricular systolic function is normal. The left ventricular ejection fraction is within the normal range. There is increased LV wall thickness. There is normal LV segmental wall motion. The left ventricular diastolic function is normal. LVEF is 55%. Right Ventricle The right ventricle is normal size. The right ventricular systolic function is normal. Atria The left atrium size is normal. The right atrium size is normal. There is no Doppler evidence of interatrial shunt. Aortic Valve Aortic valve is mildly thickened. There is no aortic valvular stenosis. No aortic regurgitation is present. Mitral Valve The mitral valve is normal in structure. No evidence of mitral valve stenosis. Trace mitral regurgitation. Tricuspid Valve Tricuspid valve is grossly normal in structure and function. Trace tricuspid regurgitation. There is insufficient TR jet to estimate RVSP. Pulmonic Valve The pulmonary valve is normal in structure. Trace pulmonic regurgitation. Great Vessels The aortic root is normal in size. IVC is normal in size and collapses >50% with inspiration. Pericardium There is no pericardial effusion. Other Information Study Quality: Fair Conclusion Normal biventricular systolic function. No significant valvular stenosis or regurgitation. Electronically signed by : Krysta Epperson MD 08/12/2024 23:28:55
--- OUTSIDE RECORDS SUMMARY | 2024-08-10 07:51 | XMS_ITS ---
Author Organization Unknown Medications Medication Instructions Effective Dates (start - stop) Status fenofibrate 160 MG Oral Tablet 2 [id number]:00:00.000+00: 00 - Completed simvastatin 20 MG Oral Tablet 20 31-08-09:00:00.000+00: 00 - Completed ibuprofen 600 MG Oral Tablet 202 06-14-16:00:00.000+00: 00 - Completed prednisone 20 MG Oral Tablet 202 05-21-27:00:00.000+00: 00 - Completed - [id number]:00 :00.000+00: 00 - Completed fenofibrate 160 MG Oral Tablet 2 [id number]:00:00.000+00: 00 - Completed cefdinir 300 MG Oral Capsule 05-21-27:00:00.000+00: 00 - Completed fenofibrate 160 MG Oral Tablet 2 [id number]:00:00.000+00: 00 - Completed azelastine hydrochloride 0.1 37 MG/ACTUAT Metered Dose Nasal [place] [id number]:00 .000+00: 00 - Completed oxycodone hydrochloride 5 MG Oral Tablet [id number]:00:00.000+00: 00 - Completed simvastatin 20 MG Oral Tablet 20 03-06-07:00:00.000+00: 00 - Completed simvastatin 20 MG Oral Tablet 20 30-11-10:00:00.000+00: 00 - Completed simvastatin 20 MG Oral Tablet 20 02-03-09:00:00.000+00: 00 - Completed azelastine hydrochloride 0.1 37 MG/ACTUAT Metered Dose Nasal [place] [id number]:00 .000+00: 00 - Completed tizanidine 4 MG Oral Tablet 2022 [id number]:00:00.000+00: 00 - Completed fenofibrate 160 MG Oral Tablet 2 [id number]:00:00.000+00: 00 - Completed dextromethorphan hydrobromid e 3 MG/ML / promethazine hydrochloride 1.25 MG/ML Oral Solution [id number]:00:00.000+00: 00 - Completed Patient Care team information Name Category Status Period Participants - - Proposed period not known -
--- OUTSIDE RECORDS SUMMARY | 2024-08-10 07:52 | XMS_ITS | Data Portability ---
Author Organization MARISSA BESS Ramirez [place] [facility] Address [address] [facility] [address] [place] [address] Care Team Providers Care Advertising Writer Name Role Phone MORGAN COOK Primary Care Provider Assessment Encounter Date Assessment Date Assessment LastModified by Organization Details LastModified Time 10/13/2021 10/13/2021 KUB reviewed with patient. We discussed kidney stone prevention. We discussed options for elective stone treatment with ESWL versus ureteroscopy. Continue to monitor by KUB. [email or web address] Not available 10/25/2021 14:27:05 04/16/2022 04/16/2022 We discussed kidney stone prevention. Follow up 6 months with KUB. Sildenafil as needed for erectile dysfunction. He reports PSA with PCP. [email or web address] Not available 04/19/2022 12:40:49 10/15/2022 10/15/2022 Sildenafil as needed for erectile dysfunction. He reports PSA with PCP. KUB without obvious stone burden. We discussed kidney stone prevention. [email or web address] Not available 10/15/2022 17:01:50 04/15/2023 04/15/2023 Sildenafil as needed for erectile dysfunction. He reports PSA with PCP. We discussed kidney stone prevention. [email or web address] Not available 04/15/2023 14:00:11 Plan of Treatment Reminders Order Date Submit Date Provider Last Modified By Organization Details Last Modified Time Details Appointments None recorded. Lab urinalysis panel, auto 2023 024 [email or web address] 14 [facility], [facility] Urology [facility], [address], [place], [address], 4 14:00:14 urinalysis panel, auto 2022 023 [email or web address] 14 [facility], [address], [address], [place], [address], 3 17:01:51 urinalysis panel, auto 2022 023 [email or web address] 14 [facility], [address], [address], [place], [address], 3 12:40:50 urinalysis panel, auto 2021 022 [email or web address] 14 [facility], [address], [address], [place], [address], 2 14:27:06 Referral None recorded. Procedures None recorded. Surgeries None recorded. Imaging XR, abdomen, 1 view 2023 024 [facility] Radiology [facility], [address] [facility], [place], [address], 4 11:14:53 Medication Orders None recorded. Patient TargetsNo targets recorded. Patient InstructionsNo instructions recorded. Reason for Referral None Reported. Results Created Date Observation Date Name Description Value Unit Range Abnormal Flag Note LastModifiedBy Organization Detail LastModifiedTime 10/14/19 22 10/13/2021 urina lysis panel , auto Unknown Analyte Clean Catch Not Available [facility] [address], [place], [address], 10/13/2021 11:27:09 10/14/19 22 10/13/2021 urina lysis panel , auto Unknown Analyte Yellow Not Available [facility] [address], [place], [address], 10/13/2021 11:27:09 10/14/19 22 10/13/2021 urina lysis panel , auto Unknown Analyte Clear Not Available [facility] [address], [place], [address], 10/13/2021 11:27:09 10/14/19 22 10/13/2021 urina lysis panel , auto Unknown Analyte 1.020 Not Available [facility] [address], [place], [address], 10/13/2021 11:27:09 10/14/19 22 10/13/2021 urina lysis panel , auto Unknown Analyte 1.003- 1.035 Not Available [facility] [address], [place], [address], 10/13/2021 11:27:09 10/14/19 22 10/13/2021 urina lysis panel , auto Unknown Analyte 5.0 Not Available [facility] [address], [place], [address], 10/13/2021 11:27:09 10/14/19 22 10/13/2021 urina lysis panel , auto Unknown Analyte 5.0-8. 0 Not Available [facility] [address], [place], [address], 10/13/2021 11:27:09 10/14/19 22 10/13/2021 urina lysis panel , auto Unknown Analyte Negati ve Not Available [facility] [address], [place], [address], 10/13/2021 11:27:09 10/14/19 22 10/13/2021 urina lysis panel , auto Unknown Analyte Negati ve Not Available [facility] [address], [place], [address], 10/13/2021 11:27:09 10/14/19 22 10/13/2021 urina lysis panel , auto Unknown Analyte Negati ve Not Available [facility] [address], [place], [address], 10/13/2021 11:27:09 10/14/19 22 10/13/2021 urina lysis panel , auto Unknown Analyte Negati ve Not Available [facility] [address], [place], [address], 10/13/2021 11:27:09 10/14/19 22 10/13/2021 urina lysis panel , auto Unknown Analyte Negati ve Not Available [facility] [address], [place], [address], 10/13/2021 11:27:09 10/14/19 22 10/13/2021 urina lysis panel , auto Unknown Analyte Negati ve Not Available [facility] [address], [place], [address], 10/13/2021 11:27:09 10/14/19 22 10/13/2021 urina lysis panel , auto Unknown Analyte Normal Not Available [facility] [address], [place], [address], 10/13/2021 11:27:09 10/14/19 22 10/13/2021 urina lysis panel , auto Unknown Analyte Normal Not Available [facility] [address], [place], [address], 10/13/2021 11:27:09 10/14/19 22 10/13/2021 urina lysis panel , auto Unknown Analyte Negati ve Not Available [facility] [address], [place], [address], 10/13/2021 11:27:09 10/14/19 22 10/13/2021 urina lysis panel , auto Unknown Analyte Negati ve Not Available [facility] [address], [place], [address], 10/13/2021 11:27:09 10/14/19 22 10/13/2021 urina lysis panel , auto Unknown Analyte Normal Not Available [facility] [address], [place], [address], 10/13/2021 11:27:09 10/14/19 22 10/13/2021 urina lysis panel , auto Unknown Analyte Normal 1 mg/dl Not Available [facility] [address], [place], [address], 10/13/2021 11:27:09 10/14/19 22 10/13/2021 urina lysis panel , auto Unknown Analyte Negati ve Not Available [facility] [address], [place], [address], 10/13/2021 11:27:09 10/14/19 22 10/13/2021 urina lysis panel , auto Unknown Analyte Negati ve Not Available [facility] [address], [place], [address], 10/13/2021 11:27:09 10/14/19 22 10/13/2021 urina lysis panel , auto Unknown Analyte Negati ve Not Available [facility] [address], [place], [address], 10/13/2021 11:27:09 10/14/19 22 10/13/2021 urina lysis panel , auto Unknown Analyte Negati ve Not Available [facility] [address], [place], [address], 10/13/2021 11:27:09 04/16/19 23 04/16/2022 urina lysis panel , auto Unknown Analyte Clean Catch Not Available [facility] [address], [place], [address], 04/16/2022 09:14:11 04/16/1904/16/2022 urina lysis panel , auto Unknown Analyte Yellow Not Available [facility] [address], [place], [address], 04/16/2022 09:14:11 04/16/1904/16/2022 urina lysis panel , auto Unknown Analyte Clear Not Available [facility] [address], [place], [address], 04/16/2022 09:14:11 04/16/19 23 04/16/2022 urina lysis panel , auto Unknown Analyte 1.020 Not Available [facility] [address], [place], [address], 04/16/2022 09:14:11 04/16/1904/16/2022 urina lysis panel , auto Unknown Analyte 1.003- 1.035 Not Available [facility] [address], [place], [address], 04/16/2022 09:14:11 04/16/19 23 04/16/2022 urina lysis panel , auto Unknown Analyte 5.0 Not Available [facility] [address], [place], [address], 04/16/2022 09:14:11 04/16/1904/16/2022 urina lysis panel , auto Unknown Analyte 5.0-8. 0 Not Available [facility] [address], [place], [address], 04/16/2022 09:14:11 04/16/1904/16/2022 urina lysis panel , auto Unknown Analyte 25 Shola/ul Trace Not Available [facility] [address], [place], [address], 04/16/2022 09:14:11 04/16/1904/16/2022 urina lysis panel , auto Unknown Analyte Negati ve Not Available [facility] [address], [place], [address], 04/16/2022 09:14:11 04/16/19 23 04/16/2022 urina lysis panel , auto Unknown Analyte Negati ve Not Available [facility] [address], [place], [address], 04/16/2022 09:14:11 04/16/1904/16/2022 urina lysis panel , auto Unknown Analyte Negati ve Not Available [facility] [address], [place], [address], 04/16/2022 09:14:11 04/16/1904/16/2022 urina lysis panel , auto Unknown Analyte Negati ve Not Available [facility] [address], [place], [address], 04/16/2022 09:14:11 04/16/1904/16/2022 urina lysis panel , auto Unknown Analyte Negati ve Not Available [facility] [address], [place], [address], 04/16/2022 09:14:11 04/16/1904/16/2022 urina lysis panel , auto Unknown Analyte Normal Not Available [facility] [address], [place], [address], 04/16/2022 09:14:11 04/16/1904/16/2022 urina lysis panel , auto Unknown Analyte Normal Not Available [facility] [address], [place], [address], 04/16/2022 09:14:11 04/16/1904/16/2022 urina lysis panel , auto Unknown Analyte Negati ve Not Available [facility] [address], [place], [address], 04/16/2022 09:14:04/16/1904/16/2022 urina lysis panel , auto Unknown Analyte Negati ve Not Available [facility] [address], [place], [address], 04/16/2022 09:14:04/16/1904/16/2022 urina lysis panel , auto Unknown Analyte 1 mg/dl Not Available [facility] [address], [place], [address], 04/16/2022 09:14:04/16/1904/16/2022 urina lysis panel , auto Unknown Analyte Normal 1 mg/dl Not Available [facility] [address], [place], [address], 04/16/2022 09:14:04/16/1904/16/2022 urina lysis panel , auto Unknown Analyte Negati ve Not Available [facility] [address], [place], [address], 04/16/2022 09:14:04/16/1904/16/2022 urina lysis panel , auto Unknown Analyte Negati ve Not Available [facility] [address], [place], [address], 04/16/2022 09:14:11 04/16/19 23 04/16/2022 urina lysis panel , auto Unknown Analyte Negati ve Not Available [facility] [address], [place], [address], 04/16/2022 09:14:11 04/16/19 23 04/16/2022 urina lysis panel , auto Unknown Analyte Negati ve Not Available [facility] [address], [place], [address], 04/16/2022 09:14:11 10/16/1910/15/2022 urina lysis panel , auto Unknown Analyte Clean Catch Not Available [facility] [address], [place], [address], 10/15/2022 08:51:32 10/16/19 23 10/15/2022 urina lysis panel , auto Unknown Analyte Yellow Not Available [facility] [address], [place], [address], 10/15/2022 08:51:32 10/16/19 23 10/15/2022 urina lysis panel , auto Unknown Analyte Clear Not Available [facility] [address], [place], [address], 10/15/2022 08:51:32 10/16/1910/15/2022 urina lysis panel , auto Unknown Analyte 1.025 Not Available [facility] [address], [place], [address], 10/15/2022 08:51:32 10/16/19 23 10/15/2022 urina lysis panel , auto Unknown Analyte 5.0 Not Available [facility] [address], [place], [address], 10/15/2022 08:51:32 10/16/19 23 10/15/2022 urina lysis panel , auto Unknown Analyte Negati ve Not Available [facility] [address], [place], [address], 10/15/2022 08:51:32 10/16/1910/15/2022 urina lysis panel , auto Unknown Analyte Negati ve Not Available [facility] [address], [place], [address], 10/15/2022 08:51:32 10/16/19 23 10/15/2022 urina lysis panel , auto Unknown Analyte Negati ve Not Available [facility] [address], [place], [address], 10/15/2022 08:51:32 10/16/19 23 10/15/2022 urina lysis panel , auto Unknown Analyte Normal Not Available [facility] [address], [place], [address], 10/15/2022 08:51:32 10/16/19 23 10/15/2022 urina lysis panel , auto Unknown Analyte Negati ve Not Available [facility] [address], [place], [address], 10/15/2022 08:51:32 10/16/19 23 10/15/2022 urina lysis panel , auto Unknown Analyte Normal Not Available [facility] [address], [place], [address], 10/15/2022 08:51:32 10/16/19 23 10/15/2022 urina lysis panel , auto Unknown Analyte Negati ve Not Available [facility] [address], [place], [address], 10/15/2022 08:51:32 10/16/19 23 10/15/2022 urina lysis panel , auto Unknown Analyte Negati ve Not Available [facility] [address], [place], [address], 10/15/2022 08:51:32 04/15/19 24 04/15/2023 urina lysis panel , auto Unknown Analyte Clean Catch Not Available [facility] [address], [place], [address], 04/15/2023 10:21:21 04/15/19 24 04/15/2023 urina lysis panel , auto Unknown Analyte Yellow Not Available [facility] [address], [place], [address], 04/15/2023 10:21:21 04/15/19 24 04/15/2023 urina lysis panel , auto Unknown Analyte Clear Not Available [facility] [address], [place], [address], 04/15/2023 10:21:21 04/15/19 24 04/15/2023 urina lysis panel , auto Unknown Analyte 1.020 Not Available [facility] [address], [place], [address], 04/15/2023 10:21:21 04/15/19 24 04/15/2023 urina lysis panel , auto Unknown Analyte 1.003- 1.035 Not Available [facility] [address], [place], [address], 04/15/2023 10:21:21 04/15/19 24 04/15/2023 urina lysis panel , auto Unknown Analyte 5.0 Not Available [facility] [address], [place], [address], 04/15/2023 10:21:21 04/15/19 24 04/15/2023 urina lysis panel , auto Unknown Analyte 5.0-8. 0 Not Available [facility] [address], [place], [address], 04/15/2023 10:21:21 04/15/19 24 04/15/2023 urina lysis panel , auto Unknown Analyte Negati ve Not Available [facility] [address], [place], [address], 04/15/2023 10:21:21 04/15/19 24 04/15/2023 urina lysis panel , auto Unknown Analyte Negati ve Not Available [facility] [address], [place], [address], 04/15/2023 10:21:21 04/15/19 24 04/15/2023 urina lysis panel , auto Unknown Analyte Negati ve Not Available [facility] [address], [place], [address], 04/15/2023 10:21:21 04/15/19 24 04/15/2023 urina lysis panel , auto Unknown Analyte Negati ve Not Available [facility] [address], [place], [address], 04/15/2023 10:21:21 04/15/19 24 04/15/2023 urina lysis panel , auto Unknown Analyte Negati ve Not Available [facility] [address], [place], [address], 04/15/2023 10:21:21 04/15/19 24 04/15/2023 urina lysis panel , auto Unknown Analyte Negati ve Not Available [facility] [address], [place], [address], 04/15/2023 10:21:21 04/15/19 24 04/15/2023 urina lysis panel , auto Unknown Analyte Normal Not Available [facility] [address], [place], [address], 04/15/2023 10:21:21 04/15/19 24 04/15/2023 urina lysis panel , auto Unknown Analyte Normal Not Available [facility] [address], [place], [address], 04/15/2023 10:21:21 04/15/19 24 04/15/2023 urina lysis panel , auto Unknown Analyte Negati ve Not Available [facility] [address], [place], [address], 04/15/2023 10:21:21 04/15/19 24 04/15/2023 urina lysis panel , auto Unknown Analyte Negati ve Not Available [facility] [address], [place], [address], 04/15/2023 10:21:21 04/15/19 24 04/15/2023 urina lysis panel , auto Unknown Analyte 1 mg/dl Not Available [facility] [address], [place], [address], 04/15/2023 10:21:21 04/15/19 24 04/15/2023 urina lysis panel , auto Unknown Analyte Normal 1 mg/dl Not Available [facility] [address], [place], [address], 04/15/2023 10:21:21 04/15/19 24 04/15/2023 urina lysis panel , auto Unknown Analyte Negati ve Not Available [facility] [address], [place], [address], 04/15/2023 10:21:21 04/15/19 24 04/15/2023 urina lysis panel , auto Unknown Analyte Negati ve Not Available [facility] [address], [place], [address], 04/15/2023 10:21:21 04/15/19 24 04/15/2023 urina lysis panel , auto Unknown Analyte Negati ve Not Available [facility] [address], [place], [address], 04/15/2023 10:21:21 04/15/19 24 04/15/2023 urina lysis panel , auto Unknown Analyte Negati ve Not Available [facility] [address], [place], [address], 04/15/2023 10:21:21 10/16/19 23 10/15/2022 XR, abdom en, 1 view [facility] [address] [place] [address] [place] [address] Patiimmanuel t Name: HILARIO Jacobsen : 1959 [...] Mensah MD on 10/16/19 10:56 AM [facility] Radiology [facility] [address] [place], [address], 10/16/2022 10:16:48 04/15/19 24 04/15/2023 XR, abdom en, 1 view [facility] [address] [place] [address] [place] [address] Patiimmanuel t Name: HILARIO Jacobsen : 1959 [...] Grupo Paez MD on 04/15/19 11:[address] Radiology [facility] [address] [place], [address], 04/15/2023 12:11:30 Result Notes None recorded. Problems No Known Problems Procedures Surgical History None recorded. Imaging Results Imaging Date Name Status LastModified by Organiz ation Details LastModified Time 10/15/2022 XR, abdomen, 1 view completed ALFONSO [facility] [address] [place], [address], 10/16/2022 10:16:48 04/15/2023 XR, abdomen, 1 view completed [address] Radiology [facility] [address] [place], [address], 04/15/2023 12:11:30 Procedure Notes None recorded. Medical [...] Updated DateTime 10/13/2021 193.04 cm 26.2 kg/m2 61071.36 g Nano Conn [facility] 10/13/2021 11:31:20 Date Recorded Body height Body mass index (BMI) Body weight Provider Name and Address Organization Details Last Updated DateTime 10/15/2022 193.04 cm 26.4 kg/m2 68989.54 g Raquel Baron [facility] 10/15/2022 08:51:13 Date Recorded Body height Body mass index (BMI) Body weight Provider Name and Address Organization Details Last Updated DateTime 04/15/2023 193.04 cm 27.4 kg/m2 054465.28 g Tonya Linares [facility] 04/15/2023 10:23:41 Social History Question Answer Notes LastModified by Organizat ion Details LastModified Time Tobacco Smoking Status Current [facility] Day [facility] 11:26:14 What Is Your Level Of [...] available 10/13 11:26:01 Medical History Condition Response Allergies/Hayfever Y Liver Disease Y Arthritis Y Kidney Stones Y Sleep Apnea Y High Cholesterol Y Past Encounters Encounter ID Performer Location Encounter Start Date Encounter Closed Date Diagnosis/Indication Diagnosis SNOMED-CT Code Diagnosis ICD10 Code Diagnosis Note [id number] [facility] [address] 07/15/2016 06:51:44 07/15/2016 06:51:44 [id number] MD SHRE[facility] [address] [place] [id number] 10/13/2021 10:47:40 10/13/2021 12:09:21 Kidney stone 38724313 N20.0 Renal colic 0136853 N23 [id number] MD SHREYA [facility] [address] [place] [address] 04/16/2022 09:00:07 04/16/2022 09:44:01 Kidney stone 63321992 N20.0 Renal colic 9064894 N23 Primary er ectile dysfunction 541519676 N52.9 [id number] CARROLL JONES MD [facility] [address] [place] [address] 10/15/2022 08:01:41 10/15/2022 10:11:36 Kidney stone 72381524 N20.0 Renal colic 4746267 N23 Primary er ectile dysfunction 518540647 N52.9 [id number] CARROLL JONES MD [facility] [address] [place] [address] 04/15/2023 10:07:41 04/15/2023 10:34:59 Kidney stone 61292841 N20.0 Primary er ectile dysfunction 427756025 N52.9 Benign pro static hyperplasia with outflow obstruction 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 N40.1 Health Concerns Section Related Observation LastModified by Organization Detai ls LastModified Time None Recorded Concern Status LastModified by Organization Details LastModified Time None Recorded Advance Directives Directive None Recorded Payers Encounter Date Sequence Insurance Name Policy Number Policy Keyes Covered Member ID Keyes Member ID Guarantor Name 10/13/2021 1 [place] [id number] 2 Hilario Basilioaster [id number] Hilario T Schofield 04/16/2022 1 [place] [id number] 2 Hilario Basilioaster [id number] Hilario T Schofield 10/15/2022 1 [place] [id number] 2 Hilario Basilioaster [id number] Hilario T Schofield 04/15/2023 1 [place] [id number] 2 Hilario Basilioaster [id number] Hilario Priscilla Schofield Notes Date Note Type Note Provider [...] gross hematuria or dysuria. CARROLL JONES MD [address] [place] [address], [phone], [facility] 10/25/2021 14:27:47 04/16/2022 text/html 61-year-old male in the office for follow up evaluation of urolithiasis. CT from 10/08/2021 showed bilateral nonobstructing renal stones up to 4 mm.No flank or abdominal pain. No hesitancy or urgency. He voids every 2 hours with nocturia once nightly. No gross hematuria or dysuria. He uses sildenafil as needed for erectile dysfunction. CARROLL JONES MD [address] [place] [address], [phone], [facility] 04/19/2022 12:41:06 10/15/2022 text/html 62-year-old male in the office for follow up evaluation of urolithiasis. CT from 10/08/2021 showed bilateral nonobstructing renal stones up to 4 mm. He uses sildenafil as needed for erectile dysfunction. He denies bothersome lower urinary symptom, flank, or abdominal pain.No gross hematuria or dysuria. Daytime frequency 2-3 times. CARROLL JONES MD [address] [place] [address], [phone], [facility] 10/15/2022 17:02:05 04/15/2023 text/html 63-year-old male in the office for follow up evaluation of urolithiasis. CT from 10/08/2021 showed bilateral nonobstructing renal stones up to 4 mm. He uses sildenafil as needed for erectile dysfunction. Occasional hesitancy. No urgency. Daytime frequency every 1-1.5 hours due to coffee intake. No nocturia when using CPAP. No gross hematuria. No dysuria. CARROLL JONES MD [address] [place] [address], [phone], [facility] 04/15/2023 14:00:31
--- NOTE | 2024-08-10 08:00 | CA_ITS ---
FINAL REPORT TECHNIQUE: Tang scale, color and spectral doppler images of the bilateral carotid arteries were obtained. CLINICAL HISTORY: ASCVD COMPARISON: None FINDINGS: Peak systolic velocity in the right internal carotid artery is 75 cm/sec. The internal carotid to common carotid artery ratio is 1.15. There is no significant carotid artery stenosis and minimal plaque formation. The right vertebral artery is normal in direction. Peak systolic velocity in the left internal carotid artery is 83 cm/sec. The internal carotid to common carotid artery ratio is 1.17. There is no significant carotid artery stenosis and minimal plaque formation. The left vertebral artery is normal in direction. IMPRESSION: No ultrasound evidence of hemodynamically significant carotid artery stenosis. Normal peak systolic velocities and normal internal to common carotid artery ratios bilaterally. Reviewed, Interpreted and Dictated by Sabas Spain MD Transcribed by Brandi Barcenas Authenticated and . [facility]
--- NOTE | 2024-08-10 09:30 | CA_ITS ---
FINAL REPORT TECHNIQUE: Grayscale and color Doppler ultrasound images with graded compression of the deep venous system were obtained from the groin to the calf veins bilaterally. CLINICAL HISTORY: Left calf pain FINDINGS: The deep venous system is normal. There is no evidence of DVT. Flow and compressibility are normal. IMPRESSION: No evidence of left or right lower extremity DVT. Reviewed, Interpreted and Dictated by Sabas Spain MD Transcribed by Luciana Bingham Authenticated and [facility]
== END 2024-08-10 23:59 | disposition home or self-care (01) ==
LOC: RT 07:50
PROVIDERS: PCP Family Medicine; Visit Provider Internal Medicine
DX: I25.10 Atherosclerotic heart disease of native coronary artery without angina pectoris (principal); R06.02 Shortness of breath; R23.0 Cyanosis; E78.5 Hyperlipidemia, unspecified; I73.9 Peripheral vascular disease, unspecified; R93.1 Abnormal findings on diagnostic imaging of heart and coronary circulation
CPT/HCPCS: 93306; 93880; 93970

== ENCOUNTER 2024-08-16 09:41 | Outpatient (CLI) | payer MEDICARE, SELFPAY ==
--- OUTSIDE RECORDS SUMMARY | 2024-08-16 09:44 | XMS_ITS | Data Portability ---
Author Organization MARISSA BESS Ramirez FREEMAN CLOSED Address [address] [place] [address] Care Team Providers Care Bag Loader Name Role Phone MORGAN COOK Primary Care Provider Assessment Encounter Date Assessment Date Assessment LastModified by Organization Details LastModified Time 10/13/2021 10/13/2021 KUB reviewed with patient. We discussed kidney stone prevention. We discussed options for elective stone treatment with ESWL versus ureteroscopy. Continue to monitor by KUB. [email or web address] Not available 10/25/2021 14:27:05 04/16/2022 04/16/2022 We discussed kidney stone prevention. Follow up 6 months with KUB. Sildenafil as needed for erectile dysfunction. He reports PSA with PCP. Not available 04/19/2022 12:40:49 10/15/2022 10/15/2022 Sildenafil as needed for erectile dysfunction. He reports PSA with PCP. KUB without obvious stone burden. We discussed kidney stone prevention. [email or web address] Not available 10/15/2022 17:01:50 04/15/2023 04/15/2023 Sildenafil as needed for erectile dysfunction. He reports PSA with PCP. We discussed kidney stone prevention. [email or web address] Not available 04/15/2023 14:00:11 Plan of Treatment Reminders Order Date Submit Date Provider Last Modified By Organization Details Last Modified Time Details Appointments None recorded. Lab urinalysis panel, auto 2023 024 [email or web address] 14 [facility], [address], [place], [address], 4 14:00:14 urinalysis panel, auto 2022 023 [email or web address] 14 [facility], [address], [address], [place], [address], 3 17:01:51 urinalysis panel, auto 2022 023 [email or web address] 14 [facility], [address], [address], [place], [address], 3 12:40:50 urinalysis panel, auto 2021 022 [email or web address] 14 [facility], [address], [address], [place], [address], 2 14:27:06 Referral None recorded. Procedures None recorded. Surgeries None recorded. Imaging XR, abdomen, 1 view 2023 024 [facility], [address], [place], [address], 4 11:14:53 Medication Orders None recorded. Patient TargetsNo targets recorded. Patient InstructionsNo instructions recorded. Reason for Referral None Reported. Results Created Date Observation Date Name Description Value Unit Range Abnormal Flag Note LastModifiedBy Organization Detail LastModifiedTime 10/14/19 22 10/13/2021 urina lysis panel , auto Unknown Analyte Clean Catch Not Available [facility] [address], [place], [address], 10/13/2021 11:27:09 10/14/19 22 10/13/2021 urina lysis panel , auto Unknown Analyte Yellow Not Available [facility] [address], [place], [address], 10/13/2021 11:27:09 10/14/19 22 10/13/2021 urina lysis panel , auto Unknown Analyte Clear Not Available [facility] [address], [place], [address], 10/13/2021 11:27:09 10/14/19 22 10/13/2021 urina lysis panel , auto Unknown Analyte 1.020 Not Available [facility] [address], [place], [address], 10/13/2021 11:27:09 10/14/19 22 10/13/2021 urina lysis panel , auto Unknown Analyte 1.003- 1.035 Not Available [facility] [address], [place], [address], 10/13/2021 11:27:09 10/14/19 22 10/13/2021 urina lysis panel , auto Unknown Analyte 5.0 Not Available [facility] [address], [place], [address], 10/13/2021 11:27:09 10/14/19 22 10/13/2021 urina lysis panel , auto Unknown Analyte 5.0-8. 0 Not Available [facility] [address], [place], [address], 10/13/2021 11:27:09 10/14/19 22 10/13/2021 urina lysis panel , auto Unknown Analyte Negati ve Not Available [facility] [address], [place], [address], 10/13/2021 11:27:09 10/14/19 22 10/13/2021 urina lysis panel , auto Unknown Analyte Negati ve Not Available [facility] [address], [place], [address], 10/13/2021 11:27:09 10/14/19 22 10/13/2021 urina lysis panel , auto Unknown Analyte Negati ve Not Available [facility] [address], [place], [address], 10/13/2021 11:27:09 10/14/19 22 10/13/2021 urina lysis panel , auto Unknown Analyte Negati ve Not Available [facility] [address], [place], [address], 10/13/2021 11:27:09 10/14/19 22 10/13/2021 urina lysis panel , auto Unknown Analyte Negati ve Not Available [facility] [address], [place], [address], 10/13/2021 11:27:09 10/14/19 22 10/13/2021 urina lysis panel , auto Unknown Analyte Negati ve Not Available [facility] [address], [place], [address], 10/13/2021 11:27:09 10/14/19 22 10/13/2021 urina lysis panel , auto Unknown Analyte Normal Not Available [facility] [address], [place], [address], 10/13/2021 11:27:09 10/14/19 22 10/13/2021 urina lysis panel , auto Unknown Analyte Normal Not Available [facility] [address], [place], [address], 10/13/2021 11:27:09 10/14/19 22 10/13/2021 urina lysis panel , auto Unknown Analyte Negati ve Not Available [facility] [address], [place], [address], 10/13/2021 11:27:09 10/14/19 22 10/13/2021 urina lysis panel , auto Unknown Analyte Negati ve Not Available [facility] [address], [place], [address], 10/13/2021 11:27:09 10/14/19 22 10/13/2021 urina lysis panel , auto Unknown Analyte Normal Not Available [facility] [address], [place], [address], 10/13/2021 11:27:09 10/14/19 22 10/13/2021 urina lysis panel , auto Unknown Analyte Normal 1 mg/dl Not Available [facility] [address], [place], [address], 10/13/2021 11:27:09 10/14/19 22 10/13/2021 urina lysis panel , auto Unknown Analyte Negati ve Not Available [facility] [address], [place], [address], 10/13/2021 11:27:09 10/14/19 22 10/13/2021 urina lysis panel , auto Unknown Analyte Negati ve Not Available [facility] [address], [place], [address], 10/13/2021 11:27:09 10/14/19 22 10/13/2021 urina lysis panel , auto Unknown Analyte Negati ve Not Available [facility] [address], [place], [address], 10/13/2021 11:27:09 10/14/19 22 10/13/2021 urina lysis panel , auto Unknown Analyte Negati ve Not Available [facility] [address], [place], [address], 10/13/2021 11:27:09 04/16/19 23 04/16/2022 urina lysis panel , auto Unknown Analyte Clean Catch Not Available [facility] [address], [place], [address], 04/16/2022 09:14:11 04/16/1904/16/2022 urina lysis panel , auto Unknown Analyte Yellow Not Available [facility] [address], [place], [address], 04/16/2022 09:14:11 04/16/1904/16/2022 urina lysis panel , auto Unknown Analyte Clear Not Available [facility] [address], [place], [address], 04/16/2022 09:14:11 04/16/19 23 04/16/2022 urina lysis panel , auto Unknown Analyte 1.020 Not Available [facility] [address], [place], [address], 04/16/2022 09:14:11 04/16/1904/16/2022 urina lysis panel , auto Unknown Analyte 1.003- 1.035 Not Available [facility] [address], [place], [address], 04/16/2022 09:14:11 04/16/19 23 04/16/2022 urina lysis panel , auto Unknown Analyte 5.0 Not Available [facility] [address], [place], [address], 04/16/2022 09:14:11 04/16/1904/16/2022 urina lysis panel , auto Unknown Analyte 5.0-8. 0 Not Available [facility] [address], [place], [address], 04/16/2022 09:14:11 04/16/1904/16/2022 urina lysis panel , auto Unknown Analyte 25 Shola/ul Trace Not Available [facility] [address], [place], [address], 04/16/2022 09:14:11 04/16/1904/16/2022 urina lysis panel , auto Unknown Analyte Negati ve Not Available [facility] [address], [place], [address], 04/16/2022 09:14:11 04/16/19 23 04/16/2022 urina lysis panel , auto Unknown Analyte Negati ve Not Available [facility] [address], [place], [address], 04/16/2022 09:14:11 04/16/1904/16/2022 urina lysis panel , auto Unknown Analyte Negati ve Not Available [facility] [address], [place], [address], 04/16/2022 09:14:11 04/16/1904/16/2022 urina lysis panel , auto Unknown Analyte Negati ve Not Available [facility] [address], [place], [address], 04/16/2022 09:14:11 04/16/1904/16/2022 urina lysis panel , auto Unknown Analyte Negati ve Not Available [facility] [address], [place], [address], 04/16/2022 09:14:11 04/16/1904/16/2022 urina lysis panel , auto Unknown Analyte Normal Not Available [facility] [address], [place], [address], 04/16/2022 09:14:11 04/16/1904/16/2022 urina lysis panel , auto Unknown Analyte Normal Not Available [facility] [address], [place], [address], 04/16/2022 09:14:11 04/16/1904/16/2022 urina lysis panel , auto Unknown Analyte Negati ve Not Available [facility] [address], [place], [address], 04/16/2022 09:14:04/16/1904/16/2022 urina lysis panel , auto Unknown Analyte Negati ve Not Available [facility] [address], [place], [address], 04/16/2022 09:14:04/16/1904/16/2022 urina lysis panel , auto Unknown Analyte 1 mg/dl Not Available [facility] [address], [place], [address], 04/16/2022 09:14:04/16/1904/16/2022 urina lysis panel , auto Unknown Analyte Normal 1 mg/dl Not Available [facility] [address], [place], [address], 04/16/2022 09:14:04/16/1904/16/2022 urina lysis panel , auto Unknown Analyte Negati ve Not Available [facility] [address], [place], [address], 04/16/2022 09:14:04/16/1904/16/2022 urina lysis panel , auto Unknown Analyte Negati ve Not Available [facility] [address], [place], [address], 04/16/2022 09:14:11 04/16/19 23 04/16/2022 urina lysis panel , auto Unknown Analyte Negati ve Not Available [facility] [address], [place], [address], 04/16/2022 09:14:11 04/16/19 23 04/16/2022 urina lysis panel , auto Unknown Analyte Negati ve Not Available [facility] [address], [place], [address], 04/16/2022 09:14:11 10/16/1910/15/2022 urina lysis panel , auto Unknown Analyte Clean Catch Not Available [facility] [address], [place], [address], 10/15/2022 08:51:32 10/16/19 23 10/15/2022 urina lysis panel , auto Unknown Analyte Yellow Not Available [facility] [address], [place], [address], 10/15/2022 08:51:32 10/16/19 23 10/15/2022 urina lysis panel , auto Unknown Analyte Clear Not Available [facility] [address], [place], [address], 10/15/2022 08:51:32 10/16/1910/15/2022 urina lysis panel , auto Unknown Analyte 1.025 Not Available [facility] [address], [place], [address], 10/15/2022 08:51:32 10/16/19 23 10/15/2022 urina lysis panel , auto Unknown Analyte 5.0 Not Available [facility] [address], [place], [address], 10/15/2022 08:51:32 10/16/19 23 10/15/2022 urina lysis panel , auto Unknown Analyte Negati ve Not Available [facility] [address], [place], [address], 10/15/2022 08:51:32 10/16/1910/15/2022 urina lysis panel , auto Unknown Analyte Negati ve Not Available [facility] [address], [place], [address], 10/15/2022 08:51:32 10/16/19 23 10/15/2022 urina lysis panel , auto Unknown Analyte Negati ve Not Available [facility] [address], [place], [address], 10/15/2022 08:51:32 10/16/19 23 10/15/2022 urina lysis panel , auto Unknown Analyte Normal Not Available [facility] [address], [place], [address], 10/15/2022 08:51:32 10/16/19 23 10/15/2022 urina lysis panel , auto Unknown Analyte Negati ve Not Available [facility] [address], [place], [address], 10/15/2022 08:51:32 10/16/19 23 10/15/2022 urina lysis panel , auto Unknown Analyte Normal Not Available [facility] [address], [place], [address], 10/15/2022 08:51:32 10/16/19 23 10/15/2022 urina lysis panel , auto Unknown Analyte Negati ve Not Available [facility] [address], [place], [address], 10/15/2022 08:51:32 10/16/19 23 10/15/2022 urina lysis panel , auto Unknown Analyte Negati ve Not Available [facility] [address], [place], [address], 10/15/2022 08:51:32 04/15/19 24 04/15/2023 urina lysis panel , auto Unknown Analyte Clean Catch Not Available [facility] [address], [place], [address], 04/15/2023 10:21:21 04/15/19 24 04/15/2023 urina lysis panel , auto Unknown Analyte Yellow Not Available [facility] [address], [place], [address], 04/15/2023 10:21:21 04/15/19 24 04/15/2023 urina lysis panel , auto Unknown Analyte Clear Not Available [facility] [address], [place], [address], 04/15/2023 10:21:21 04/15/19 24 04/15/2023 urina lysis panel , auto Unknown Analyte 1.020 Not Available [facility] [address], [place], [address], 04/15/2023 10:21:21 04/15/19 24 04/15/2023 urina lysis panel , auto Unknown Analyte 1.003- 1.035 Not Available [facility] [address], [place], [address], 04/15/2023 10:21:21 04/15/19 24 04/15/2023 urina lysis panel , auto Unknown Analyte 5.0 Not Available [facility] [address], [place], [address], 04/15/2023 10:21:21 04/15/19 24 04/15/2023 urina lysis panel , auto Unknown Analyte 5.0-8. 0 Not Available [facility] [address], [place], [address], 04/15/2023 10:21:21 04/15/19 24 04/15/2023 urina lysis panel , auto Unknown Analyte Negati ve Not Available [facility] [address], [place], [address], 04/15/2023 10:21:21 04/15/19 24 04/15/2023 urina lysis panel , auto Unknown Analyte Negati ve Not Available [facility] [address], [place], [address], 04/15/2023 10:21:21 04/15/19 24 04/15/2023 urina lysis panel , auto Unknown Analyte Negati ve Not Available [facility] [address], [place], [address], 04/15/2023 10:21:21 04/15/19 24 04/15/2023 urina lysis panel , auto Unknown Analyte Negati ve Not Available [facility] [address], [place], [address], 04/15/2023 10:21:21 04/15/19 24 04/15/2023 urina lysis panel , auto Unknown Analyte Negati ve Not Available [facility] [address], [place], [address], 04/15/2023 10:21:21 04/15/19 24 04/15/2023 urina lysis panel , auto Unknown Analyte Negati ve Not Available [facility] [address], [place], [address], 04/15/2023 10:21:21 04/15/19 24 04/15/2023 urina lysis panel , auto Unknown Analyte Normal Not Available [facility] [address], [place], [address], 04/15/2023 10:21:21 04/15/19 24 04/15/2023 urina lysis panel , auto Unknown Analyte Normal Not Available [facility] [address], [place], [address], 04/15/2023 10:21:21 04/15/19 24 04/15/2023 urina lysis panel , auto Unknown Analyte Negati ve Not Available [facility] [address], [place], [address], 04/15/2023 10:21:21 04/15/19 24 04/15/2023 urina lysis panel , auto Unknown Analyte Negati ve Not Available [facility] [address], [place], [address], 04/15/2023 10:21:21 04/15/19 24 04/15/2023 urina lysis panel , auto Unknown Analyte 1 mg/dl Not Available [facility] [address], [place], [address], 04/15/2023 10:21:21 04/15/19 24 04/15/2023 urina lysis panel , auto Unknown Analyte Normal 1 mg/dl Not Available [facility] [address], [place], [address], 04/15/2023 10:21:21 04/15/19 24 04/15/2023 urina lysis panel , auto Unknown Analyte Negati ve Not Available [facility] [address], [place], [address], 04/15/2023 10:21:21 04/15/19 24 04/15/2023 urina lysis panel , auto Unknown Analyte Negati ve Not Available [facility] [address], [place], [address], 04/15/2023 10:21:21 04/15/19 24 04/15/2023 urina lysis panel , auto Unknown Analyte Negati ve Not Available [facility] [address], [place], [address], 04/15/2023 10:21:21 04/15/19 24 04/15/2023 urina lysis panel , auto Unknown Analyte Negati ve Not Available [facility] [address], [place], [address], 04/15/2023 10:21:21 10/16/19 23 10/15/2022 XR, abdom en, 1 view [facility] [address] [place] [address] [place] [address] Patiimmanuel t Name: HILARIO Jacobsen : 1959 [...] Mensah MD on 10/16/19 10:56 AM [facility] [address] [place], [address], 10/16/2022 10:16:48 04/15/19 24 04/15/2023 XR, abdom en, 1 view [facility] [address] [place] [address] [place] [address] Patiimamnuel t Name: HILARIO Jacobsen : 1959 Nazario [...] Grupo Paez MD on 04/15/19 11:[address] [facility] [address] [place], [address], 04/15/2023 12:11:30 Result Notes None recorded. Problems No Known Problems Procedures Surgical History None recorded. Imaging Results Imaging Date Name Status LastModified by Organiz ation Details LastModified Time 10/15/2022 XR, abdomen, 1 view completed [facility] [address] [place], [address], 10/16/2022 10:16:48 04/15/2023 XR, abdomen, 1 view completed [address] [facility] [address] [place], [address], 04/15/2023 12:11:30 Procedure Notes None recorded. Medical [...] Updated DateTime 10/13/2021 193.04 cm 26.2 kg/m2 01645.36 g Nano Conn [facility] 10/13/2021 11:31:20 Date Recorded Body height Body mass index (BMI) Body weight Provider Name and Address Organization Details Last Updated DateTime 10/15/2022 193.04 cm 26.4 kg/m2 94169.54 g Raquel Baron [facility] 10/15/2022 08:51:13 Date Recorded Body height Body mass index (BMI) Body weight Provider Name and Address Organization Details Last Updated DateTime 04/15/2023 193.04 cm 27.4 kg/m2 712502.28 g Tonya Linares [facility] 04/15/2023 10:23:41 Social History Question Answer Notes LastModified by Organizat ion Details LastModified Time Tobacco Smoking Status Current Every Day [facility] 10/13/2021 11:26:14 What Is Your Level [...] SNOMED-CT Code Diagnosis ICD10 Code Diagnosis Note [id number] QM_[place] [address] 07/15/2016 06:51:44 07/15/2016 06:51:44 [id number] MD SHREYA ANSARI [facility] [address] [place] [phone] 10/13/2021 10:47:40 10/13/2021 12:09:21 Kidney stone 45017000 N20.0 Renal colic 8747313 N23 [id number] MD SHREYA ANSARI [facility] [address] [place] [address] 04/16/2022 09:00:07 04/16/2022 09:44:01 Kidney stone 30545503 N20.0 Renal colic 3600943 N23 Primary er ectile dysfunction 300871452 N52.9 [id number] CARROLL JONES MD [facility] [address] [place] [address] 10/15/2022 08:01:41 10/15/2022 10:11:36 Kidney stone 33156841 N20.0 Renal colic 4011184 N23 Primary er ectile dysfunction 078439818 N52.9 [id number] CARROLL JONES MD [facility] [address] [place] [address] 04/15/2023 10:07:41 04/15/2023 10:34:59 Kidney stone 87571844 N20.0 Primary er ectile dysfunction 042577553 N52.9 Benign pro static hyperplasia with outflow obstruction 273821307 N40.1 Health Concerns Section Related Observation LastModified by Organization Detai ls LastModified Time None Recorded Concern Status LastModified by Organization Details LastModified Time None Recorded Advance Directives Directive None Recorded Payers Insurance Date Sequence Insurance Name Policy Number Policy Keyes Covered Member ID Keyes Member ID Guarantor Name 04/15/2024 1 KAYLIE-OK: [facility] [id number] Hilario Schofield [id number] Hilario Schofield Notes Date Note Type [...] gross hematuria or dysuria. CARROLL JONES MD [facility], [place], [address], [facility] 10/25/2021 14:27:47 04/16/2022 text/html 61-year-old male in the office for follow up evaluation of urolithiasis. CT from 10/08/2021 showed bilateral nonobstructing renal stones up to 4 mm.No flank or abdominal pain. No hesitancy or urgency. He voids every 2 hours with nocturia once nightly. No gross hematuria or dysuria. He uses sildenafil as needed for erectile dysfunction. CARROLL JONES MD [address] [place] [address], [phone], [facility] 04/19/2022 12:41:06 10/15/2022 text/html 62-year-old male in the office for follow up evaluation of urolithiasis. CT from 10/08/2021 showed bilateral nonobstructing renal stones up to 4 mm. He uses sildenafil as needed for erectile dysfunction. He denies bothersome lower urinary symptom, flank, or abdominal pain.No gross hematuria or dysuria. Daytime frequency 2-3 times. CARROLL JONES MD [address] [place] [address], [phone], [facility] 10/15/2022 17:02:05 04/15/2023 text/html 63-year-old male in the office for follow up evaluation of urolithiasis. CT from 10/08/2021 showed bilateral nonobstructing renal stones up to 4 mm. He uses sildenafil as needed for erectile dysfunction. Occasional hesitancy. No urgency. Daytime frequency every 1-1.5 hours due to coffee intake. No nocturia when using CPAP. No gross hematuria. No dysuria. CARROLL JONES MD [address] [place] [address], [phone], [facility] 04/15/2023 14:00:31
--- NOTE | 2024-08-16 10:00 | US_ITS ---
FINAL REPORT TECHNIQUE: Ultrasound images of the kidneys and bladder were obtained. CLINICAL HISTORY: I10 - Essential (primary) hypertension COMPARISON: None FINDINGS: The right kidney measures 12.4 cm in length. It is normal in echogenicity. There is no hydronephrosis. The left kidney measures 14.6 cm in length. It is normal in echogenicity. There is no hydronephrosis. Limited evaluation of the liver suggests that fatty infiltration of the liver is present. IMPRESSION: No hydronephrosis. Reviewed, Interpreted and Dictated by Fiona Pedersen MD Transcribed by Brandi Barcenas Authenticated and [facility]
--- NOTE | 2024-08-16 10:30 | CA_ITS ---
FINAL REPORT CLINICAL HISTORY: HTN,CAD,HX KIDNEY STONES COMPARISON: None FINDINGS: Aorta velocity: 85 cm/sec Right kidney: 13.5 cm. No evidence of hydronephrosis or mass. Right intrarenal RI: 0.54-0.57 Right renal artery velocity: 383 cm/sec. Right RAR (Renal artery-Aortic Ratio): 4.5 to Left Kidney: 12.5 cm. No evidence of hydronephrosis or mass. Left intrarenal RI: 0.59-0.62 Left renal artery velocity: 200 cm/sec. Left RAR (Renal Artery-Aortic Ratio): 2.37 IMPRESSION: Greater than 60% stenosis present in the right renal artery. No definite stenosis seen in the left renal artery, although the velocities are elevated. Suggest CTA of the renal arteries for further evaluation. Reviewed, Interpreted and Dictated by Fiona Pedersen MD Transcribed by Brandi Barcenas Authenticated and [facility]
== END 2024-08-16 23:59 | disposition home or self-care (01) ==
LOC: RAD 09:41
PROVIDERS: PCP Family Medicine; Visit Provider Physician Assistant
DX: R93.1 Abnormal findings on diagnostic imaging of heart and coronary circulation (principal); I10 Essential (primary) hypertension; E78.49 Other hyperlipidemia; I99.8 Other disorder of circulatory system
CPT/HCPCS: 76770; 93976

== ENCOUNTER 2024-08-21 08:21 | Day surgery (SDC) | payer MEDICARE, SELFPAY ==
[2024-08-21] VITALS (12 sets, daily range): BP systolic 97–146; BP diastolic 50–83; PULSE 48–60; RESP 15–20; TEMP 36.6–36.9; O2SAT 92–98; BMI 29.8
--- NOTE | 2024-08-21 06:59 | IR_ITS ---
APPROVED REPORT Patient Location: Outpatient PROCEDURES Intravascular ultrasound to the left main artery Drug-eluting stent deployment to the ostial proximal left main artery Drug-eluting stent deployment to the terminal obtuse marginal artery of the circumflex artery Bilateral selective renal angiography Bare-metal stent deployment to the ostium of the right renal artery INDICATION Coronary artery disease, Angina pectoris, Abnormal renal duplex, Renal artery stenosis, Renovascular hypertension Informed consent was obtained prior to the procedure. COMPLICATIONS NONE Estimated Blood Loss: LESS THAN 10 ML TECHNIQUE 1% lidocaine used anesthetize right groin the right femoral artery was accessed via the central technique and a 6 Maldivian sheath is placed in the right femoral artery. Therapeutic Was administered with therapeutic ACT. A JL 4 guide catheter was placed in left main artery with there was immediate dampening. A Choice PT extra-support wire was placed into the terminal obtuse marginal artery and a 2.25 x 22 mm [place] frontier stent was deployed in the proximal portion of the terminal obtuse marginal artery reducing severe tandem lesions to 0% AINSLEY-3 flow was present before and after the procedure. A 4 mm x 8 mm Jere frontier stent was deployed at 24 wilner reducing the stenosis. Intravascular ultrasound probe was readvanced which demonstrated the ostium was slightly undersized therefore a 5 mm x 8 mm noncompliant balloon was deployed out into the aorta and into the tip of the 4 mm stent deployed at 18 wilner to post dilate stent and flare the ostium. Excellent angiographic results were obtained. Intravascular ultrasound probe was advanced over a Choice PT extra-support wire which was placed in the terminal obtuse marginal artery. Severe stenosis was identified therefore a 4 mm x 8 mm [place] frontier stent. AINSLEY-3 flow was present in the left main artery before and after the procedure. Following this a JR4 catheter was used to perform bilateral selective renal angiography. A short 6 Maldivian IVAN guide catheter was placed in the right renal artery followed by Choice PT of support wire. A 6 mm x 12 mm Herculink stent was deployed at 18 wilner reducing the severe ostial stenosis to 0%. Excellent angiograph results were obtained. At the end the procedure the apparatus was removed the groin is reprepped closure change sheath is removed hemostasis was achieved using TR banding patient was transferred to the postop putting in stable condition ANGIOGRAPHIC RESULTS Right renal artery singular and has an ostial 90% stenosis Left renal artery singular has a long proximal 20 to 30% stenosis IMPRESSION Severe ostial left main disease Successful stenting the ostial left main severe disease reduced to 0% with 1 drug-eluting stent Severe disease in the proximal portion of the terminal obtuse marginal artery Successful stenting the proximal portion of the terminal obtuse marginal artery severe tandem disease reduced to 0% with 1 drug-eluting stent Severe right renal artery stenosis Successful stenting of the ostial proximal right renal artery severe disease reduced to 0% with 1 drug-eluting stent Mild right left renal artery stenosis PLAN 1. Continue dual antiplatelet therapy 2. Risk factor modification 3. Cardiac rehabilitation 4. Avoidance of tobacco products 5. LDL less than 55 achieved with high intensity statin Electronically signed by : Iker Senior MD 08/21/2024 12:21:48
[2024-08-21 08:50] LABS: Basophils # 0.1 K/mm3 (0-0.2); Basophils % 0.9 % (0.1-2.0); Eosinophils # 0.1 Kmm3 (0.0-0.4); Eosinophils % 2.2 % (0.1-12.0); Hematocrit 42.8 % (42.0-52.0); Hemoglobin 14.9 g/dL (14.1-18.0); Immature Granulocytes # 0.03 10^3uL; Immature Granulocytes % 0.5 %; Lymphocytes # 2.4 K/mm3 (0.7-4.5); Lymphocytes % 36.8 % (10-50); Mean Corpuscular HGB Conc 34.8 g/dL (31.8-35.4); Mean Corpuscular Hemoglobin 31.6 pg (27.0-31.2); Mean Corpuscular Volume 90.9 fl (80-94); Mean Platelet Volume 10.1 fl (7.4-10.4); Monocytes # 0.7 K/mm3 (0.1-1.0); Monocytes % 10.1 % (1.7-9.3); Neutrophils # 3.2 K/mm3 (1.8-7.8); Neutrophils % 49.5 % (37.0-80.0); Nucleated Red Blood Cells # 0 10^3/uL; Nucleated Red Blood Cells % 0 %; Platelet Count 206 K/mm3 (142-424); Red Blood Count 4.71 M/mm3 (4.60-6.20); Red Cell Distribution Width 12.9 % (11.5-17.5); Red Cell Distribution Width-SD 43.1 fL; White Blood Count 6.5 K/mm3 (4.8-10.8)
[2024-08-21 09:06] LABS: Anion Gap 8.1 mEq/L (5-15); Blood Urea Nitrogen 23 mg/dl (9-20); Calcium 9.3 mg/dl (8.4-10.2); Carbon Dioxide 25 mmol/L (22.0-30.0); Chloride 109 mmol/L (98-107); Creatinine Clearance Estimated 105 mL/min (50-200); Estimated Glomerular Filt Rate 67 ml/min (>60); GFR (African American) 81 ML/MIN (>60); Glucose 108 mg/dl (74-100); Potassium 4.1 mmoL/L (3.5-5.1); Sodium 138 mmol/L (136-145)
[2024-08-21] MEDS: HEPARIN 1,000 UNITS/ML 10ML VIAL (CATH LAB) 5000 UNIT IV (11:24)
[2024-08-21] MEDS: diphenhydrAMINE 50MG/ML VIAL 50 MG IV (11:24)
[2024-08-21] MEDS: HEPARIN 1,000 UNITS/500ML NS (CATH LAB) 3000 UNIT IV (11:24)
[2024-08-21] MEDS: LIDOCAINE 1% 10ML MDV 10 ML IJ (11:24)
[2024-08-21] MEDS: 0.9 % SODIUM CHLORIDE 500 ML 25 ML IV (11:25)
[2024-08-21] MEDS: MIDAZOLAM HCL 1MG/ML 5ML VIAL 1 MG IV (12:11)
[2024-08-21] MEDS: FENTANYL 100MCG/2ML VIAL 50 MCG IV (12:11)
[2024-08-21] MEDS: IOPAMIDOL-370 (76%);100ML BOTTLE 130 ML IV (14:13)
== END 2024-08-21 15:12 | disposition home or self-care (01) ==
LOC: CATHLAB 08:21
PROVIDERS: PCP Family Medicine; Visit Provider Internal Medicine
PROC: 4A023N7 Measurement of Cardiac Sampling and Pressure, Left Heart, Percutaneous Approach (ICD-10-PCS; CPT 93452; 2024-08-21 08:15)
DX: I70.1 Atherosclerosis of renal artery (principal); I25.118 Atherosclerotic heart disease of native coronary artery with other forms of angina pectoris; I77.1 Stricture of artery; I10 Essential (primary) hypertension; E78.49 Other hyperlipidemia; Z95.5 Presence of coronary angioplasty implant and graft; R94.4 Abnormal results of kidney function studies; N28.9 Disorder of kidney and ureter, unspecified; F17.210 Nicotine dependence, cigarettes, uncomplicated; Z79.82 Long term (current) use of aspirin; Z79.899 Other long term (current) drug therapy; Z79.01 Long term (current) use of anticoagulants; E78.5 Hyperlipidemia, unspecified; I47.20 Ventricular tachycardia, unspecified; R73.03 Prediabetes
CPT/HCPCS: 37236; 80048; 85025; 85347; 92928; 92978; 99152; 99153; C1725; C1760; C1769; C1874; C1876; C1887; C1894; C9600; J1200; J1644; J3010; Q9967

== ENCOUNTER 2024-08-23 09:51 | Outpatient (RCR) | payer MEDICARE, SELFPAY | END 2024-10-19 08:00 | disposition home or self-care (01) | LOC: CR 09:51 | PROVIDERS: Visit Provider Internal Medicine | DX: R06.02 Shortness of breath (principal); R23.0 Cyanosis; R53.83 Other fatigue | CPT/HCPCS: 93798 ==

== ENCOUNTER 2025-01-10 06:29 | Day surgery (SDC) | payer MEDICARE, SELFPAY ==
[2025-01-08 13:03] VITALS: BMI 28.0
--- NOTE | 2025-01-09 15:09 | EXP.HP ---
History of Present Illness *Admission Date: 01/10/25 *Reason for visit:: Personal history of adenomatous colon polyps *History of present illness: Mr. Schofield is a 64-year-old gentleman who is here for follow-up screening/surveillance colonoscopy secondary to a personal history of adenomatous colon polyps. The patient did have a colonoscopy in December 2009 and had 4 polyps (tubular adenomas x 4) removed. His colonoscopy in February 2014 revealed 6 polyps (tubular adenomas x 6) which were removed. His colonoscopy in January 2017 revealed 4 polyps (tubular adenomas x 4) which were removed. His last colonoscopy in January 2020 revealed 3 polyps (tubular adenomas x 3) which were removed. He reports no abdominal pain, weight loss, change in his bowel habits or rectal bleeding. He reports no family history of colon cancer. The examination is deemed medically necessary for screening/surveillance colonoscopy. The patient has been seen, interviewed and examined prior to the procedure by both myself and the anesthesia provider. [facility] Disclaimer: The information contained in this section may have been updated after the patient was seen, as this information can be updated by other users. Medical History Borderline diabetes HLD (hyperlipidemia) Bounding pulse Elevated coronary artery calcium score Claudication Skin cyanosis SOB (shortness of breath) Fatigue Surgical History H/O heart artery stent S/P cardiac cath Family History Other Family history of acute heart failure Skin cancer Social History Smoking Status: Former smoker tobacco type: cigarettes packs per day: 1 second hand exposure: No alcohol intake: current alcohol intake frequency: holidays/special occasions only substance use type: denies use current occupational status: employed and retired Travel in the last 8 weeks?: None household members: spouse housing: house current occupational exposures/hazards: Yes caffeine: Yes Have you lived/traveled outside US in past 30 days?: No Contact w/someone who lives/traveled outside US past 30 days?: No Exposure to someone with infectious disease in past 14 days?: No Do you have a fever (greater than 100.4 F or 38 C)?: No Have you tested positive for COVID-19?: No Exposed to someone with COVID-19 in past 14 days?: No Do you have a sore throat?: No Do you have a cough?: No Do you have any weakness?: No Do you have any diarrhea?: No Are you experiencing any unusual bleeding?: No Do you have any muscle aches/pain?: No Do you have any abdominal pain?: No Are you experiencing loss of taste or smell?: No Other Medical History Have you received the Flu Vaccine for this season: Yes Have you received the Pneumonia Vaccine: No Review of Systems Review of Systems Review of systems (narrative): Negative *Cardiovascular Comments: Negative *Gastrointestinal Comments: Negative *Genitourinary Comments: Negative *Musculoskeletal Comments: Negative *Neurologic Comments: Negative Meds Home Medications and Allergies Home Medications ?Medication ?Instructions ?Recorded ?Confirmed ?Type aspirin 81 mg chewable tablet 81 mg PO DAILY 09/24/22 01/10/25 History magnesium oxide 400 mg (241.3 mg 400 mg PO BID 07/25/24 01/10/25 History magnesium) tablet nitroglycerin 0.4 mg sublingual 0.4 mg sublingual Q5-15M PRN chest 07/25/24 01/10/25 Rx tablet pain #30 tabs atorvastatin 80 mg tablet 80 mg PO HS #90 tabs 08/13/24 01/10/25 Rx fenofibrate 160 mg tablet 160 mg PO DAILY 90 days #90 tabs 08/13/24 01/10/25 Rx icosapent ethyl 1 gram capsule 2 g (2 x 1 gram) PO BID 90 days 08/13/24 01/10/25 Rx (Vascepa) #360 caps lisinopril 5 mg tablet 5 mg PO DAILY #90 tabs 08/13/24 01/10/25 Rx metoprolol succinate 25 mg 12.5 mg (1/2 x 25 mg) PO DAILY 90 08/13/24 01/10/25 Rx tablet,extended release 24 hr days #45 tabs (Toprol XL) azelastine 137 mcg (0.1 %) nasal 1 spray intranasal NEEDED PRN 08/28/24 01/10/25 History spray allergies clopidogrel 75 mg tablet (Plavix) 75 mg PO DAILY #90 tabs 08/28/24 01/10/25 Rx fluticasone propionate 50 1 spray intranasal NEEDED PRN 08/28/24 01/10/25 History mcg/actuation nasal allergies spray,suspension nystatin-triamcinolone 100,000 1 applic topical NEEDED PRN 08/28/24 01/10/25 History unit/gram-0.1 % topical ointment allergies New Prescriptions to Start Prescriptions: Allergies Allergy/AdvReac Type Severity Reaction Status Date / Time No Known Allergies Allergy Verified 01/10/25 07:24 Exam Data for Last 24 hours I & O for Last 24 hours: Intake & Output 01/06/25 01/07/25 01/08/25 01/09/25 23:59 23:59 23:59 23:59 Weight 230 lb *Routine HEENT Exam Head: Present normocephalic Eye: Present EOMI and PERRL ENT: Present mucous membranes moist *Routine Neck Exam Neck: Present supple *Routine Respiratory Exam Respiratory: Present CTA bilaterally *Routine Cardiovascular Exam Cardiovascular: Present RRR *Routine Abdominal Exam Abdominal: Present soft and normoactive bowel sounds; Absent tenderness *Routine Rectal Exam Rectal:: deferred *Routine Genitalia Exam Genitalia:: deferred *Routine Extremities Exam Extremities: Absent cyanosis, clubbing or edema *Routine Skin Exam Skin: Present warm; Absent rash *Routine Neurological Exam Neurological: Present alert and oriented X3 Assessment and Plan *Assessment and plan (1) Personal history of adenomatous and serrated colon polyps: Status: Acute Category: Medical Code(s): Z86.0101 - Personal history of adenomatous and serrated colon polyps (2) Screening for colon cancer: Status: Acute Category: Medical Code(s): Z12.11 - Encounter for screening for malignant neoplasm of colon Plan A/P: 1. Personal history of adenomatous colon polyps is the preprocedural diagnosis. The patient will be anesthetized/sedated using MAC sedation. The patient has been seen and examined. Cardiac and lung assessment prior to the examination is stable. Proceed with planned screening/surveillance colonoscopy.
--- NOTE | 2025-01-09 15:11 | P.PCN_ITS ---
[facility] Procedure Note Date: 01/10/25 Procedure Note:: Colonoscopy Procedure Report: Colonoscopy with cold snare polypectomy and Endo Clip placement Endoscopist: Eduard Hilton II, MD Referring physician: Bina Garvey MD Date of Procedure: January 10, 2025 Equipment: Olympus [id number] adult colonoscope Sedation: MAC sedation Indication: Mr. Schofield is a 64-year-old gentleman who is here for follow-up screening/surveillance colonoscopy secondary to a personal history of adenomatous colon polyps. The patient did have a colonoscopy in December 2009 and had 4 polyps (tubular adenomas x 4) removed. His colonoscopy in February 2014 revealed 6 polyps (tubular adenomas x 6) which were removed. His colon oscopy in January 2017 revealed 4 polyps (tubular adenomas x 4) which were removed. His last colonoscopy in January 2020 revealed 3 polyps (tubular adenomas x 3) which were removed. He reports no abdominal pain, weight loss, change in his bowel habits or rectal bleeding. He reports no family history of colon cancer. The patient's mother had colonic polyps. The examination is deemed medically necessary for screening/surveillance colonoscopy. Procedure: Prior to the procedure, a history and physical exam was performed, and patient's medications and allergies were reviewed. The risks, benefits and alternatives of the sedation and procedure were discussed with the patient. All questions were answered and informed consent was obtained. The patient was brought to the procedure room. Patient identification and proposed procedure were verified by the physician and the nurse. The patient was placed in a left lateral decubitus position and the scope was passed under direct vision. Throughout the procedure, the patient's blood pressure, pulse, and oxygen saturations were monitored continuously. The colonoscopy was accomplished without difficulty. The patient tolerated the procedure well. Findings: On digital rectal examination there was normal rectal tone. There were no external hemorrhoids. The prostate was 2+ with more firm asymmetry in the right lobe. The colonoscope was introduced through the anal canal to the rectum and advanced to the cecum. The ileocecal valve and appendiceal orifice were identified. The scope was advanced a short distance into the ileum which appeared grossly normal. The scope was then withdrawn into the colon. There were 5 colon polyps (hepatic flexure x 2 (5 and 18 mm) and descending x 3 (4, 6 and 6 mm)). All of these were removed via cold snare polypectomy. The larger 18 mm polypectomy site was closed with 2 endoclips to provide hemostasis. The remaining cecum, ascending, transverse, descending, sigmoid and rectum were grossly normal. There were no mucosal abnormalities identified. Upon retroflexion within the rectum there were grade 1-2 internal hemorrhoids. The preparation was excellent throughout with [place] Preparation Score of 9. The cecal time was 15 minutes. Impression: 1. Colonic polyps x 5 (with largest being 18 mm) 2. Firm asymmetric prostate (right lobe) Plan: I will follow-up the polyp histology and recommend repeat screening/surveillance colonoscopy in 3 years. The larger 18 mm polyp is an advanced adenoma and also persons with more than 20 adenomatous polyps cumulatively over the lifetime (over several colonoscopies) are considered to be higher risk for potential colon cancer or a genetic colon cancer polyposis syndrome. It is recommended that persons with more than a cumulative of 20 adenomatous polyps over there lifetime should be evaluated with surveillance colonoscopy no less than every 3 years. You have had more than 20 adenomatous polyps removed over the course of your colonoscopies. I would recommend PSA testing and will inquire with the patient if this has been done with any recent labs. I do not see it in hospital labs here so I will order PSA.
[2025-01-10 07:27] VITALS: BP 151/88; PULSE 58; RESP 18; TEMP 36.2; O2SAT 99
[2025-01-10] MEDS: LACTATED RINGERS 1000ML 1,000 ML 50 ML IV (07:32)
--- NOTE | 2025-01-10 07:37 | EXP.ANES.CKL ---
[facility] Disclaimer: The information contained in this section may have been updated after the patient was seen, as this information can be updated by other users. Medical History Borderline diabetes HLD (hyperlipidemia) Bounding pulse Elevated coronary artery calcium score Claudication Skin cyanosis SOB (shortness of breath) Fatigue Surgical History H/O heart artery stent S/P cardiac cath Family History Other Family history of acute heart failure Skin cancer Social History Smoking Status: Former smoker tobacco type: cigarettes packs per day: 1 second hand exposure: No alcohol intake: current alcohol intake frequency: holidays/special occasions only substance use type: denies use current occupational status: employed and retired Travel in the last 8 weeks?: None household members: spouse housing: house current occupational exposures/hazards: Yes caffeine: Yes Have you lived/traveled outside US in past 30 days?: No Contact w/someone who lives/traveled outside US past 30 days?: No Exposure to someone with infectious disease in past 14 days?: No Do you have a fever (greater than 100.4 F or 38 C)?: No Have you tested positive for COVID-19?: No Exposed to someone with COVID-19 in past 14 days?: No Do you have a sore throat?: No Do you have a cough?: No Do you have any weakness?: No Do you have any diarrhea?: No Are you experiencing any unusual bleeding?: No Do you have any muscle aches/pain?: No Do you have any abdominal pain?: No Are you experiencing loss of taste or smell?: No [facility] Anesthesia Checklist Patient Identification Patient Identification: Arm Band and Verbal (Name & ) Structural Data Admitted From: Home Planned Operative Procedure/s: colonscopy Consent for Planned Operative Procedure(s) Verified: Yes Verified Documents: Surgical Consent and History and Physical NPO Status Verified Time NPO: 00:00 Additional verifications Anesthesia Reactions: No Previous Colonoscopy: Yes Airway Assessment Mallampati Score:: Class II Dentition: Good Dentition Neurological Assessment Level of Consciousness: Awake, Alert and Appropriate Hx Seizures: No Anesthesia Plan Anesthesia Risk discussed: Yes Anesthesia Plan: Verified ASA Class: II Anesthesia Type: MAC
[2025-01-10 08:25] VITALS: BP 101/54; PULSE 68; RESP 16; TEMP 36.1; O2SAT 96
[2025-01-10 08:35] VITALS: BP 128/68; PULSE 61; RESP 16; O2SAT 97
[2025-01-10 08:45] VITALS: BP 127/75; PULSE 68; RESP 18; O2SAT 99
[2025-01-10 08:55] VITALS: BP 131/59; PULSE 65; RESP 18; O2SAT 100
[2025-01-10 10:12] LABS: Prostate Specific Ag, Diagnost 7.44 ng/ml (0.0-4.0)
== END 2025-01-10 09:04 | disposition home or self-care (01) ==
PROVIDERS: PCP Family Medicine; Visit Provider Internal Medicine Gastroenterology
PROC: 0DJD8ZZ Inspection of Lower Intestinal Tract, Via Natural or Artificial Opening Endoscopic (ICD-10-PCS; CPT 45378; principal; 2025-01-10 08:00)
DX: Z12.11 Encounter for screening for malignant neoplasm of colon (principal); D12.4 Benign neoplasm of descending colon; D12.3 Benign neoplasm of transverse colon; Z86.0101 Personal history of adenomatous and serrated colon polyps; N42.89 Other specified disorders of prostate; K64.1 Second degree hemorrhoids; Z83.719 Family history of colon polyps, unspecified; E78.5 Hyperlipidemia, unspecified; Z87.891 Personal history of nicotine dependence; Z79.82 Long term (current) use of aspirin; Z79.899 Other long term (current) drug therapy; Z79.01 Long term (current) use of anticoagulants
CPT/HCPCS: 45385; 36415; 84153; J2003; J2704; J7120